=== PATIENT | male | born 1955 | race Hispanic/Latino ===

== ENCOUNTER 2018-01-03 15:54 | Inpatient (IN) | payer OTHER ==
[2018-01-03 19:05] VITALS: BMI 23.1
--- NOTE | 2018-01-03 19:12 | CP.PCM.HP ---
<Mikey Mcallister - Last Filed: 01/03/18 20:49> History of Present Illness - History of Present Illness History of Present Illness: cc: "left foot pain and swelling" HPI: 62 year old male with PMHx of COPD and inguinal hernia presents with a 10 day history of intermittent left foot pain, swelling, and redness that started getting worst 3 days after he missed the last step going down stairs landing forcefully on foot. He states that he did not think much of until Thursday night when his pain got worse, 10 and is now tender to touch, and swollen. He describes the pain as stabbing in nature with no radiation to other parts of the body. The pain is worse when he bears his weight on it while walking and better with elevation of the extremity. Patient lives in a homeless senior living in [place] and was initially seen in [facility] but was transferred to [facility] due to a problem with the ORs and his need for possible amputation. Patient admits to productive cough that started one month ago, with clear phlegm. He admits to sick contacts at the homeless senior living. Patient denies fevers, chills, chest pain, shortness of breath , nausea, vomiting, abdominal pain, diarrhea, and constipation. PMD: none All: none Pmhx: COPD, inguinal hernia shx: none Fmhx: denies Sochx: Tobacco less than a pack a day for 40 years. social drinker. Admits to marihuana use, but no other recreational or illicit drugs Meds: none Present on Admission - Present on Admission Any Indicators Present on Admission: No Review of Systems - Constitutional Constitutional: absent: Anorexia, Chills, Excessive Sweating, Fatigue, Fever, Headache, Weight Gain, Weight Loss, Weakness - EENT Eyes: absent: Change in Vision Ears: absent: Decreased Hearing Nose/Mouth/Throat: absent: Nasal Congestion, Nasal Discharge, Post Nasal Drip, Sore Throat, Neck Pain - Cardiovascular Cardiovascular: absent: Chest Pain, Dyspnea, Leg Edema, Palpitations, Syncope - Respiratory Respiratory: Cough. absent: Dyspnea, Wheezing, Change in Mucous Color - Gastrointestinal Gastrointestinal: absent: Abdominal Pain, Constipation, Diarrhea, Nausea, Vomiting - Genitourinary Genitourinary: absent: Dysuria, Hematuria - Integumentary Integumentary: absent: Rash - Neurological Neurological: absent: Frequent Falls, Headaches, Vertigo, Weakness - Psychiatric Psychiatric: absent: Change in Appetite - Endocrine Endocrine: absent: Excessive Sweating, Fatigue, Palpitations - Hematologic/Lymphatic Hematologic: absent: Easy Bleeding, Easy Bruising Past Patient History - Infectious Disease Hx of Infectious Diseases: None - Tetanus Immunizations Tetanus Immunization: Unknown - Past Medical History & Family History Past Medical History?: No - Past Social History Smoking Status: Current Some Days Smoker - CARDIAC Hx Cardiac Disorders: No - PULMONARY Hx Chronic Obstructive Pulmonary Disease (COPD): Yes (10-03-17) Hx Pneumonia: Yes - NEUROLOGICAL Hx Neurological Disorder: No - HEENT Hx HEENT Problems: Yes (lazy left eye) Hx Cataracts: Yes - RENAL Hx Chronic Kidney Disease: No - ENDOCRINE/METABOLIC Hx Endocrine Disorders: No - HEMATOLOGICAL/ONCOLOGICAL Hx Blood Disorders: No - INTEGUMENTARY Hx Dermatological Problems: No - MUSCULOSKELETAL/RHEUMATOLOGICAL Hx Arthritis: Yes - GASTROINTESTINAL Hx Gastrointestinal Disorders: Yes Other/Comment: Inguinal hernia - GENITOURINARY/GYNECOLOGICAL Hx Genitourinary Disorders: No - PSYCHIATRIC Hx Psychophysiologic Disorder: No Hx Substance Use: Yes (occ marijuana use) - SURGICAL HISTORY Hx Surgeries: Yes (bilateral cataract sx) Other/Comment: PILONIDAL CYST BASE OF THE SPINE REMOVED - ANESTHESIA Hx Anesthesia: No Meds Allergies/Adverse Reactions: Allergies Allergy/AdvReac Type Severity Reaction Status Date / Time No Known Allergies Allergy Verified 10/03/17 22:29 Physical Exam - Head Exam Head Exam: ATRAUMATIC, NORMAL INSPECTION, NORMOCEPHALIC - Eye Exam Eye Exam: Normal appearance, PERRL Pupil Exam: NORMAL ACCOMODATION Additional comments: left eye deviated towards lateral side - ENT Exam ENT Exam: Mucous Membranes Moist, Normal Exam - Neck Exam Neck exam: Positive for: Full Rom, Normal Inspection. Negative for: Lymphadenopathy, Tenderness, Thyromegaly - Respiratory Exam Respiratory Exam: Clear to Auscultation Bilateral, NORMAL BREATHING PATTERN. absent: Rales, Rhonchi, Wheezes - Cardiovascular Exam Cardiovascular Exam: REGULAR RHYTHM, +S1, +S2 - GI/Abdominal Exam GI & Abdominal Exam: Normal Bowel Sounds, Soft. absent: Distended, Rebound, Tenderness - Extremities Exam Additional comments: left foot, dressed with tefla and DSD, surgical shoe in place. warm to palpation on distal 1/3 of anterior leg leg. erythema noted on 1/3 of anterior left leg. left foot edema, nonpitting. tenderness to palpation of left foot and distal 1/3 left leg as per [facility] consult records, the following was noted on physical exam : " DP and PT faintly palpable on the left and 2/4 to the right. TG warm to increased warmth to left leg extending distally to the entire foot , CFT delayed to 5 seconds to the left, and less than 3 seconds to the right, nonpitting edema present to the left foot" - Back Exam Back exam: FULL ROM, NORMAL INSPECTION. absent: tenderness - Neurological Exam Neurological exam: Alert, CN II-XII Intact, Oriented x3 - Psychiatric Exam Psychiatric exam: Normal Affect, Normal Mood - Skin Skin Exam: Dry Additional comments: as per [facility] consult records, the following was noted on physical exam: " Left- necrotic left 2nd digit with positive purulent drainage, positive malodor, positive probe to bone, positive for tunneling dorsally, medially and laterally when probed plantar to 2ns MTPJ, maceration noted to the 2nd MTPJ and 2nd met head, positive for fluctuance, erythema extending form the middle of the leg to the entire foot, with increased erythema at the level of the 2nd MTPJ, swelling and gangrenous changes noted to digits 1, 3, 4 and 5, fluctuant hyperkeratotic lesion noted submet 1, toenails X 5- gangrenous changes noted. Right- excoriated lesions diffusely on the right foot and leg" Results - Vital Signs Recent Vital Signs: Last Vital Signs Temp 98.2 F 01/03/18 17:46 Pulse 95 H 01/03/18 17:46 Resp 20 01/03/18 17:46 BP 112/69 01/03/18 17:46 Pulse Ox 95 01/03/18 17:46 Assessment & Plan - Assessment and Plan (Free Text) Plan: Grangrenous changes, left 2nd toe * Patient was transferred from [facility] due to OR closing - see [facility] consult note 01/03 * Podiatry was consulted in [place] - Dr Nguyen - will be following up patient here * As per Podiatry - Patient to be taken to the OR on Thursday 7:45 AM for Incision and Drainage, amputation of 2nd left digit with possible ampatition of hallux vs transmetatarsal amputation. * CBC done @ [facility] today 01/03 26.3 > 11.5/33.5 <305 * CMP done @ [facility] 01/03 128/5.0/90/30/15/0.7 <107 * U/A @ [facility] 01/03: negative * ESR @ [facility] 01/03: 106 * PT: 15.4, PTT:30.8, INR: 1.4 * EKG done @ [facility] 01/03, sinus tachycardia, otherwise normal ECG * Left Foot X-ray (01/03): deformity, cortical erosions, and demineralization noted of the 2nd middle and distal phalanges, soft tissue emphysema noted medial to the 1st metatarsal head, in the 1st interspace, and plantar to the 2nd metatarsal * Tib-Fib X-ray (01/03): no evidence of soft tissue emphysema, pending official read * Vanco 1gm and Zosyn given at [facility], ER * Ordered Portable chest Xray STAT * ECG STAT * Type and screen ordered * Blood culture x 2 * Urine drug screen ordered * Patient will be NPO after 12am * ID consulted - Dr Jones - help is appreciated - will follow up recs * IVF - NS @ 70mls/hr * Medications : Vanco 1gm IVPB Q24hr, Zosyn 3.375 mg IVPB Q8hrs * F/U am labs (CBC with diff, CMP, Mg, Phosp) * If patient does not go to surgery tomorrow, please order MRI left foot W/O contrast Cough, productive * Chest Xray 01/03: no active infection * Repeat portable Cxray * continue abx above * F/U Blood culture * monitor DVT prophylaxis * DVT: SCD to the right leg, contraindicated to the left leg. * GI: not indicated * Heart healthy diet for dinner 01/03 * NPO after midnight * Pain management: tylenol Q6hrs PRN for pain/fever Plan discussed with Dr Gabriel Mcallister, PGY-1 - Date & Time Date: 01/03/18 Time: 18:59 <Gabriel Hussein - Last Filed: 01/07/18 14:54> Results - Vital Signs Recent Vital Signs: Last Vital Signs Temp 98.5 F 01/07/18 07:32 Pulse 77 01/07/18 07:32 Resp 20 01/07/18 07:32 BP 120/77 01/07/18 07:32 Pulse Ox 96 01/07/18 07:32 - Labs Result Diagrams: 01/07/18 06:52 01/07/18 06:52 Labs: Laboratory Results - last 24 hr 01/06/18 01/06/18 01/07/18 16:15 21:06 06:52 WBC 15.1 H RBC 3.48 L Hgb 10.5 L Hct 30.6 L MCV 87.8 MCH 30.0 MCHC 34.2 RDW 14.3 Plt Count 376 MPV 6.2 L Neut % (Auto) 80.2 H Lymph % (Auto) 7.7 L [place] % (Auto) 10.1 H Eos % (Auto) 1.6 Baso % (Auto) 0.4 Neut # (Auto) 12.1 H Lymph # (Auto) 1.2 [place] # (Auto) 1.5 H Eos # (Auto) 0.2 Baso # (Auto) 0.1 Neutrophils % (Manual) 81 H Band Neutrophils % 1 Lymphocytes % (Manual) 8 L Reactive Lymphs % 1 H Monocytes % (Manual) 5 Eosinophils % (Manual) 2 Myelocytes % 2 H Platelet Estimate Normal Hypochromasia (manual) Slight Sodium Potassium Chloride Carbon Dioxide Anion Gap BUN Creatinine Est GFR ( Amer) Est GFR (Non-Af Amer) POC Glucose (mg/dL) 156 H 148 H Random Glucose Calcium Phosphorus Magnesium Total Bilirubin AST ALT Alkaline Phosphatase Total Protein Albumin Globulin Albumin/Globulin Ratio Vancomycin Trough 01/07/18 01/07/18 01/07/18 06:52 07:15 11:06 WBC RBC Hgb Hct MCV MCH MCHC RDW Plt Count MPV Neut % (Auto) Lymph % (Auto) [place] % (Auto) Eos % (Auto) Baso % (Auto) Neut # (Auto) Lymph # (Auto) [place] # (Auto) Eos # (Auto) Baso # (Auto) Neutrophils % (Manual) Band Neutrophils % Lymphocytes % (Manual) Reactive Lymphs % Monocytes % (Manual) Eosinophils % (Manual) Myelocytes % Platelet Estimate Hypochromasia (manual) Sodium 135 Potassium 3.7 Chloride 93 L Carbon Dioxide 36 H Anion Gap 9 L BUN 10 Creatinine 0.6 L Est GFR ( Amer) > 60 Est GFR (Non-Af Amer) > 60 POC Glucose (mg/dL) 124 H 201 H Random Glucose 114 H Calcium 8.0 L Phosphorus 3.1 Magnesium 2.0 Total Bilirubin 0.1 L AST 18 ALT 24 Alkaline Phosphatase 68 Total Protein 5.8 L Albumin 2.6 L Globulin 3.2 Albumin/Globulin Ratio 0.8 L Vancomycin Trough 01/07/18 12:59 WBC RBC Hgb Hct MCV MCH MCHC RDW Plt Count MPV Neut % (Auto) Lymph % (Auto) [place] % (Auto) Eos % (Auto) Baso % (Auto) Neut # (Auto) Lymph # (Auto) [place] # (Auto) Eos # (Auto) Baso # (Auto) Neutrophils % (Manual) Band Neutrophils % Lymphocytes % (Manual) Reactive Lymphs % Monocytes % (Manual) Eosinophils % (Manual) Myelocytes % Platelet Estimate Hypochromasia (manual) Sodium Potassium Chloride Carbon Dioxide Anion Gap BUN Creatinine Est GFR ( Amer) Est GFR (Non-Af Amer) POC Glucose (mg/dL) Random Glucose Calcium Phosphorus Magnesium Total Bilirubin AST ALT Alkaline Phosphatase Total Protein Albumin Globulin Albumin/Globulin Ratio Vancomycin Trough 13.6 H Attending/Attestation - Attestation I have personally seen and examined this patient.: Yes I have fully participated in the care of the patient.: Yes I have reviewed all pertinent clinical information: Yes Notes (Text): 01/07/18 14:52 Medical attending: Patient was seen and examined by me. Agree with the above note by the resident The patient was not in any acute distress when I came and saw him. He was a transfer from [facility] since the OR would not be available on Thursday and podiatry felt strongly that he needed surgical intervention for the lower extremity. He will need to be on IV abx while here and may need additional imaging such as bone scan/MRI thank you Gabriel Hussein
[2018-01-03] MEDS ORDERED: Vancomycin 1 gm/NS 200 ml 1 GM/200 ML BAG IVPB SCH (20:15)
[2018-01-03] MEDS ORDERED: Sodium Chloride 0.9% 1,000 ML IV SCH (20:30)
[2018-01-03] MEDS: Piperacillin/Tazobact 3.375 GM in Sodium Chloride 100 ML IVPB SCH (21:10)
[2018-01-03 21:48] LABS: BARBITURATES, UR NEGATIVE (NEGATIVE); BENZODIAZEPINES, UR NEGATIVE (NEGATIVE); OPIATES, UR NEGATIVE (NEGATIVE); PHENCYCLIDINE, UR NEGATIVE (NEGATIVE)
[2018-01-04] MEDS: Piperacillin/Tazobact 3.375 GM in Sodium Chloride 100 ML IVPB SCH ×3 (04:20→21:00)
[2018-01-04 07:50] LABS: ALB/GLOB RATIO 0.9 (1.0-2.1); ALBUMIN 2.9 g/dL (3.5-5.0); ALT/SGPT 19 U/L (21-72); AST/SGOT 12 U/L (17-59); BLOOD UREA NITROGEN 10 mg/dL (9-20); CALCIUM 8.1 mg/dl (8.6-10.4); GFR AFRICAN-AMERICAN > 60; GFR NON-AFRICAN AMERICAN > 60
[2018-01-04 07:52] LABS: BASO % 0.1 % (0.0-2.0); EOS % 0.1 % (0.0-4.0); HEMOGLOBIN 10.6 g/dL (12.0-18.0); LYMPH # 0.5 K/uL (1.0-4.3); LYMPH % 2.5 % (20.0-40.0); MEAN CELL VOLUME 87.4 fL (80.0-94.0); MEAN CORPUSCULAR HEMOGLOBIN 29.7 pg (27.0-31.0); MEAN PLATELET VOLUME 6.4 fL (7.2-11.7); NEUT # 19.2 K/uL (1.8-7.0); NEUT % 88.3 % (50.0-75.0); PLATELET COUNT 305 K/uL (130-400); RBC 3.55 Mil/uL (4.40-5.90); RED CELL DISTRIBUTION WIDTH 13.9 % (11.5-14.5); WHITE BLOOD COUNT 21.7 K/uL (4.8-10.8)
--- NOTE | 2018-01-04 07:59 | CP.PCM.PN ---
<Maria T Gallegos - Last Filed: 01/04/18 20:16> Subjective - Date & Time of Evaluation Date of Evaluation: 01/04/18 Time of Evaluation: 09:00 - Subjective Subjective: PGY-1 Maria T Gallegos D.O. Medicine Progress note for Dr. Jimenez service : Patient was seen and examined this morning. He is resting comfortably in bed. He describes minimal pain. He states he is prepared for his podiatry procedure later today. He is scheduled for I&D +/- amputation on left foot later today. Patient denies fever and chills. He has good sleep and appetite. Denies diarrhea or constipation. He endorses chronic dry skin on his lower extremities. Discussed applying lotion to affected area. Objective - Vital Signs/Intake and Output Vital Signs (last 24 hours): Temp Pulse Resp BP Pulse Ox 98 F 93 H 16 108/66 99 01/04/18 00:39 01/04/18 00:39 01/04/18 00:39 01/04/18 00:39 01/04/18 00:39 Intake and Output: 01/04/18 01/04/18 06:59 18:59 Intake Total 530 Output Total 350 Balance 180 - Medications Medications: Current Medications Acetaminophen (Tylenol 325mg Tab) 650 mg PO Q6 PRN PRN Reason: Pain, moderate (4-7) Piperacillin Sod/Tazobactam (Sod 3.375 gm/ Sodium Chloride) 100 mls @ 200 mls/ hr IVPB Q8H COUNTS INCLUDE 234 BEDS AT THE [facility] PRN Reason: Protocol Last Admin: 01/04/18 04:20 Dose: 200 mls/hr Sodium Chloride (Sodium Chloride 0.9%) 1,000 mls @ 70 mls/hr IV .[id number] COUNTS INCLUDE 234 BEDS AT THE [facility] Last Admin: 01/03/18 20:44 Dose: 70 mls/hr Vancomycin/Sodium Chloride (Vancomycin 1 Gm/Ns 200 Ml) 1 gm in 200 mls @ 166.7 mls/hr IVPB Q24H COUNTS INCLUDE 234 BEDS AT THE [facility] PRN Reason: Protocol Stop: 01/08/18 20:16 Last Admin: 01/03/18 21:00 Dose: 166.7 mls/hr - Labs Labs: 01/04/18 07:20 01/04/18 07:20 - Constitutional Appears: Well, Other (thin) - Head Exam Head Exam: ATRAUMATIC, NORMAL INSPECTION, NORMOCEPHALIC - Eye Exam Eye Exam: EOMI, Normal appearance - ENT Exam ENT Exam: Mucous Membranes Moist - Neck Exam Neck Exam: Full ROM, Normal Inspection - Respiratory Exam Respiratory Exam: Clear to Ausculation Bilateral - Cardiovascular Exam Cardiovascular Exam: REGULAR RHYTHM - GI/Abdominal Exam GI & Abdominal Exam: Soft, Normal Bowel Sounds - Rectal Exam Rectal Exam: Deferred - Extremities Exam Extremities Exam: Full ROM Additional comments: right foot wrapped and in SCD, ankle is erythematous, no edema, mild tenderness , dry skin left ankle and foot with dry skin, no edema - Back Exam Back Exam: NORMAL INSPECTION - Neurological Exam Neurological Exam: Alert, Awake, Oriented x3 - Psychiatric Exam Psychiatric exam: Normal Affect, Normal Mood - Skin Skin Exam: Abrasion (LLE wrapped- not examined), Dry (lower extremities), Intact , Warm (LLE) Assessment and Plan - Assessment and Plan (Free Text) Assessment: Patient is a 62 yo homeless male with PMH of COPD presents with L foot cellulitis that now has gangrenous changes. He reports this occurred after a misstep while going down the stairs. He is scheduled for a surgery today. Plan: Left foot cellulitis with gangrenous changes, 2nd toe - Vancomycin 1 g IV q24hrs- check trough before 4th dose - Zosyn 3.375 mg IV q8hrs - Tylenol 650 mg q6hrs for pain - Podiatry consult- surgery scheduled for 01/04 - NPO midnight 01/04 - EKG- NSR - Pt is low risk for podiatry procedure - Ammonium lactate ointment to dry skin as needed COPD, stable - No outpt meds - CXR- no acute disease IVF: NS @ 70 mL/hr VTE ppx: SCDs GI ppx: not indicated Code status: full code <[email or web address] - Last Filed: 01/05/18 08:15> Objective - Vital Signs/Intake and Output Vital Signs (last 24 hours): Temp Pulse Resp BP Pulse Ox 98.3 F 82 20 103/65 96 01/05/18 07:42 01/05/18 07:42 01/05/18 07:42 01/05/18 07:42 01/05/18 07:42 Intake and Output: 01/05/18 01/05/18 06:59 18:59 Intake Total 1820 Output Total 500 Balance 1320 - Medications Medications: Current Medications Acetaminophen (Tylenol 325mg Tab) 650 mg PO Q6 PRN PRN Reason: Pain, moderate (4-7) Piperacillin Sod/Tazobactam (Sod 3.375 gm/ Sodium Chloride) 100 mls @ 200 mls/ hr IVPB Q8H [facility] PRN Reason: Protocol Last Admin: 01/05/18 04:28 Dose: 200 mls/hr Vancomycin/Sodium Chloride (Vancomycin 1 Gm/Ns 200 Ml) 1 gm in 200 mls @ 133.333 mls/hr IVPB Q12H [facility] PRN Reason: Protocol Last Admin: 01/05/18 02:03 Dose: 133.333 mls/hr Lactic Acid (Lac-Hydrin 12% Lotion (225 G)) 0 gm EXT Q6 PRN PRN Reason: dry skin Potassium Chloride (Potassium Chloride Oral Soln) 20 meq PO BID [facility] Stop: 01/06/18 02:00 Saccharomyces Boulardii (Florastor) 250 mg PO BID JOVITA - Labs Labs: 01/05/18 07:08 01/05/18 07:08 Attending/Attestation - Attestation I have personally seen and examined this patient.: Yes I have fully participated in the care of the patient.: Yes I have reviewed all pertinent clinical information, including history, physical exam and plan: Yes Notes (Text): Patient was seen and examined before surgery. Patient has foul smelling left foot infection. Has infected left foot,2nd toe gangrene,abscess and cellulites of left foot. No history of diabetes. He is a smoker. 1. Left foot infection/toe gangrene/abscess and cellulites of foot 2.COPD-stable 3.h/o smoking 4.Homeless continue zosyn and vancomycin.Vanco level,follow cultures ID consult appreciated we will follow with surgery team assessment and the plan discussed with the resident and I agree with the documentation
--- NOTE | 2018-01-04 08:30 | RAD ---
Date of service: 01/03/2018 HISTORY: cough COMPARISON: No prior. FINDINGS: LUNGS: The lungs are hyperinflated and there is peribronchial thickening with chronic changes in both lungs. No focal consolidation. There is left basilar scarring. PLEURA: No significant pleural effusion identified, no pneumothorax apparent. CARDIOVASCULAR: Normal. OSSEOUS STRUCTURES: No significant abnormalities. VISUALIZED UPPER ABDOMEN: Normal. OTHER FINDINGS: None. IMPRESSION: No active pulmonary disease. COPD.
[2018-01-04 09:24] LABS: ANISOCYTOSIS SLIGHT; BANDS 5 % (0-2); LYMPHOCYTE 2 % (20-40); MONOCYTE 8 % (0-10); NEUTROPHIL 85 % (50-75); PLATELET ESTIMATE NORMAL (NORMAL); POIKILOCYTOSIS SLIGHT; TOTAL CELLS COUNTED 100
[2018-01-04 09:25] LABS: HYPOCHROMIC SLIGHT
[2018-01-04] MEDS: Dextrose 5%/0.45% NS 1,000 ML IV SCH ×2 (09:25→23:33)
[2018-01-04] MEDS ORDERED: Dextrose 5%/0.9% NS 1,000 ML IV SCH (09:30)
--- NOTE | 2018-01-04 11:06 | CP.PCM.CON ---
History of Present Illness - History of Present Illness History of Present Illness: Podiatry Consult Note - Dr. Wood 62 y/o male with PMHx of COPD seen at bedside this morning regarding left foot gas gangrene with 2nd digit gangrene. Pt resting comfortably in bed, stating he has mild pain in the left foot. States he slept ok and feels somewhat better today. Pt was transferred from [facility] yesterday to allow for surgical intervention today of left foot infection. He states he has had pain and swelling in the left foot for approx 10 days now, worsened over the last 3-4 days. Denies a history of diabetes or any complications with his feet. States he stepped on the foot strangely 4-5 days ago and since then felt worsening pain. Denies F/C/N/V/CP/SOB PSHx: hernia repair All: NKDA SocHx: 40 year smoking history; denies EtOH or drug use. Lives at [facility] homeless senior care Review of Systems - Review of Systems All systems: reviewed and no additional remarkable complaints except (per HPI) Past Patient History - Infectious Disease Hx of Infectious Diseases: None - Tetanus Immunizations Tetanus Immunization: Unknown - Past Medical History & Family History Past Medical History?: No - Past Social History Smoking Status: Current Some Days Smoker - CARDIAC Hx Cardiac Disorders: No - PULMONARY Hx Chronic Obstructive Pulmonary Disease (COPD): Yes (10-03-17) Hx Pneumonia: Yes - NEUROLOGICAL Hx Neurological Disorder: No - HEENT Hx HEENT Problems: Yes (lazy left eye) Hx Cataracts: Yes - RENAL Hx Chronic Kidney Disease: No - ENDOCRINE/METABOLIC Hx Endocrine Disorders: No - HEMATOLOGICAL/ONCOLOGICAL Hx Blood Disorders: No - INTEGUMENTARY Hx Dermatological Problems: No - MUSCULOSKELETAL/RHEUMATOLOGICAL Hx Arthritis: Yes - GASTROINTESTINAL Hx Gastrointestinal Disorders: Yes Other/Comment: Inguinal hernia - GENITOURINARY/GYNECOLOGICAL Hx Genitourinary Disorders: No - PSYCHIATRIC Hx Psychophysiologic Disorder: No Hx Substance Use: Yes (occ marijuana use) - SURGICAL HISTORY Hx Surgeries: Yes (bilateral cataract sx) Other/Comment: PILONIDAL CYST BASE OF THE SPINE REMOVED - ANESTHESIA Hx Anesthesia: No Meds Allergies/Adverse Reactions: Allergies Allergy/AdvReac Type Severity Reaction Status Date / Time No Known Allergies Allergy Verified 10/03/17 22:29 - Medications Medications: Current Medications Acetaminophen (Tylenol 325mg Tab) 650 mg PO Q6 PRN PRN Reason: Pain, moderate (4-7) Piperacillin Sod/Tazobactam (Sod 3.375 gm/ Sodium Chloride) 100 mls @ 200 mls/ hr IVPB Q8H [facility] PRN Reason: Protocol Last Admin: 01/04/18 04:20 Dose: 200 mls/hr Vancomycin/Sodium Chloride (Vancomycin 1 Gm/Ns 200 Ml) 1 gm in 200 mls @ 166.7 mls/hr IVPB Q24H [facility] PRN Reason: Protocol Stop: 01/08/18 20:16 Last Admin: 01/03/18 21:00 Dose: 166.7 mls/hr Dextrose/Sodium Chloride (Dextrose 5%/0.45% Ns 1000 Ml) 1,000 mls @ 70 mls/hr IV .[id number] [facility] Last Admin: 01/04/18 09:25 Dose: 70 mls/hr Physical Exam - Constitutional Appears: Well, Non-toxic, No Acute Distress - Extremities Exam Additional comments: LLE exhibits dressing which is clean dry and intact at this time, no strikethrough Mild malodor noted to LLE Pt able to wiggle toes Surgical shoe noted to L foot - Neurological Exam Neurological exam: Alert, Oriented x3 - Psychiatric Exam Psychiatric exam: Normal Affect, Normal Mood Results - Vital Signs Recent Vital Signs: Last Vital Signs Temp 98.8 F 01/04/18 08:00 Pulse 83 01/04/18 08:00 Resp 20 01/04/18 08:00 BP 104/64 01/04/18 08:00 Pulse Ox 95 01/04/18 08:00 - Labs Result Diagrams: 01/04/18 07:20 01/04/18 07:20 Labs: Laboratory Results - last 24 hr 01/03/18 01/03/18 01/04/18 21:14 21:14 07:20 WBC 21.7 H RBC 3.55 L Hgb 10.6 L Hct 31.0 L MCV 87.4 MCH 29.7 MCHC 34.0 RDW 13.9 Plt Count 305 MPV 6.4 L Neut % (Auto) 88.3 H Lymph % (Auto) 2.5 L [place] % (Auto) 9.0 Eos % (Auto) 0.1 Baso % (Auto) 0.1 Neut # (Auto) 19.2 H Lymph # (Auto) 0.5 L [place] # (Auto) 2.0 H Eos # (Auto) 0.0 Baso # (Auto) 0.0 Neutrophils % (Manual) 85 H Band Neutrophils % 5 H Lymphocytes % (Manual) 2 L Monocytes % (Manual) 8 Platelet Estimate Normal Hypochromasia (manual) Slight Poikilocytosis (manual Slight Anisocytosis (manual) Slight Sodium Potassium Chloride Carbon Dioxide Anion Gap BUN Creatinine Est GFR ( Amer) Est GFR (Non-Af Amer) Random Glucose Calcium Phosphorus Magnesium Total Bilirubin AST ALT Alkaline Phosphatase Total Protein Albumin Globulin Albumin/Globulin Ratio Urine Opiates Screen Negative Urine Methadone Screen Negative Ur Barbiturates Screen Negative Ur Phencyclidine Scrn Negative Ur Amphetamines Screen Negative U Benzodiazepines Scrn Negative U Oth Cocaine Metabols Negative U Cannabinoids Screen Negative Blood Type A NEGATIVE Antibody Screen Negative 01/04/18 07:20 WBC RBC Hgb Hct MCV MCH MCHC RDW Plt Count MPV Neut % (Auto) Lymph % (Auto) [place] % (Auto) Eos % (Auto) Baso % (Auto) Neut # (Auto) Lymph # (Auto) [place] # (Auto) Eos # (Auto) Baso # (Auto) Neutrophils % (Manual) Band Neutrophils % Lymphocytes % (Manual) Monocytes % (Manual) Platelet Estimate Hypochromasia (manual) Poikilocytosis (manual Anisocytosis (manual) Sodium 133 Potassium 3.7 Chloride 93 L Carbon Dioxide 31 H Anion Gap 12 BUN 10 Creatinine 0.6 L Est GFR ( Amer) > 60 Est GFR (Non-Af Amer) > 60 Random Glucose 82 Calcium 8.1 L Phosphorus 3.4 Magnesium 2.0 Total Bilirubin 0.7 AST 12 L D ALT 19 L Alkaline Phosphatase 77 Total Protein 6.0 L Albumin 2.9 L Globulin 3.2 Albumin/Globulin Ratio 0.9 L Urine Opiates Screen Urine Methadone Screen Ur Barbiturates Screen Ur Phencyclidine Scrn Ur Amphetamines Screen U Benzodiazepines Scrn U Oth Cocaine Metabols U Cannabinoids Screen Blood Type Antibody Screen Assessment & Plan - Assessment and Plan (Free Text) Assessment: 62 y/o male with 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 Wood Marked leukocytosis still present, decreasing from 26.3 yesterday to 21.7 today Explained to patient the urgency of surgical intervention to clean out infected tissue and bone Discussed all risks, benefits, complications and alternatives with patient Written consent signed by patient, demonstrated clear verbal understanding Pt to go to surgery today at 6:30pm for incision and drainage of L foot with amputation of all non-viable soft tissue and bone (2nd digit and metatarsal amputation vs. transmetatarsal amputation) Medical optimization appreciated at this time NPO order in place Anti-coags to be held at this time Continue IV Zosyn, Vancomycin Will continue to follow patient closely
--- NOTE | 2018-01-04 13:05 | CP.PCM.CON ---
History of Present Illness - History of Present Illness History of Present Illness: 62 year old male presents with a 10 day history of intermittent left foot pain, swelling, and redness that started getting worst 3 days after he missed the last step going down stairs landing forcefully on foot. Patient lives in a homeless skilled nursing in [place] and was initially seen in [facility] but was transferred to [facility] due to a problem with the ORs and his need for possible amputation ID consulted for antibiotic management PMD: none All: none Pmhx: COPD, inguinal hernia shx: none Fmhx: denies Sochx: Tobacco less than a pack a day for 40 years. social drinker. Admits to marihuana use, but no other recreational or illicit drugs Meds: none Review of Systems - Constitutional Constitutional: absent: Anorexia, Chills, Excessive Sweating, Fatigue, Fever, Headache, Weight Gain, Weight Loss, Weakness - EENT Eyes: absent: Change in Vision Ears: absent: Decreased Hearing Nose/Mouth/Throat: absent: Nasal Congestion, Nasal Discharge, Post Nasal Drip, Sore Throat, Neck Pain - Cardiovascular Cardiovascular: absent: Chest Pain, Dyspnea, Leg Edema, Palpitations, Syncope - Respiratory Respiratory: Cough. absent: Dyspnea, Wheezing, Change in Mucous Color - Gastrointestinal Gastrointestinal: absent: Abdominal Pain, Constipation, Diarrhea, Nausea, Vomiting - Genitourinary Genitourinary: absent: Dysuria, Hematuria - Integumentary Integumentary: absent: Rash - Neurological Neurological: absent: Frequent Falls, Headaches, Vertigo, Weakness - Psychiatric Psychiatric: absent: Change in Appetite - Endocrine Endocrine: absent: Excessive Sweating, Fatigue, Palpitations - Hematologic/Lymphatic Hematologic: absent: Easy Bleeding, Easy Bruising Past Patient History - Infectious Disease Hx of Infectious Diseases: None - Tetanus Immunizations Tetanus Immunization: Unknown - Past Medical History & Family History Past Medical History?: No - Past Social History Smoking Status: Current Some Days Smoker - CARDIAC Hx Cardiac Disorders: No - PULMONARY Hx Chronic Obstructive Pulmonary Disease (COPD): Yes (10-03-17) Hx Pneumonia: Yes - NEUROLOGICAL Hx Neurological Disorder: No - HEENT Hx HEENT Problems: Yes (lazy left eye) Hx Cataracts: Yes - RENAL Hx Chronic Kidney Disease: No - ENDOCRINE/METABOLIC Hx Endocrine Disorders: No - HEMATOLOGICAL/ONCOLOGICAL Hx Blood Disorders: No - INTEGUMENTARY Hx Dermatological Problems: No - MUSCULOSKELETAL/RHEUMATOLOGICAL Hx Arthritis: Yes - GASTROINTESTINAL Hx Gastrointestinal Disorders: Yes Other/Comment: Inguinal hernia - GENITOURINARY/GYNECOLOGICAL Hx Genitourinary Disorders: No - PSYCHIATRIC Hx Psychophysiologic Disorder: No Hx Substance Use: Yes (occ marijuana use) - SURGICAL HISTORY Hx Surgeries: Yes (bilateral cataract sx) Other/Comment: PILONIDAL CYST BASE OF THE SPINE REMOVED - ANESTHESIA Hx Anesthesia: No Meds Allergies/Adverse Reactions: Allergies Allergy/AdvReac Type Severity Reaction Status Date / Time No Known Allergies Allergy Verified 10/03/17 22:29 - Medications Medications: Current Medications Acetaminophen (Tylenol 325mg Tab) 650 mg PO Q6 PRN PRN Reason: Pain, moderate (4-7) Piperacillin Sod/Tazobactam (Sod 3.375 gm/ Sodium Chloride) 100 mls @ 200 mls/ hr IVPB Q8H [facility] PRN Reason: Protocol Last Admin: 01/04/18 12:09 Dose: 200 mls/hr Vancomycin/Sodium Chloride (Vancomycin 1 Gm/Ns 200 Ml) 1 gm in 200 mls @ 166.7 mls/hr IVPB Q24H [facility] PRN Reason: Protocol Stop: 01/08/18 20:16 Last Admin: 01/03/18 21:00 Dose: 166.7 mls/hr Dextrose/Sodium Chloride (Dextrose 5%/0.45% Ns 1000 Ml) 1,000 mls @ 70 mls/hr IV .[id number] [facility] Last Admin: 01/04/18 09:25 Dose: 70 mls/hr Physical Exam - Constitutional Appears: No Acute Distress, Chronically Ill - Head Exam Head Exam: ATRAUMATIC, NORMOCEPHALIC - Eye Exam Eye Exam: PERRL. absent: Scleral icterus - ENT Exam ENT Exam: Mucous Membranes Dry, Normal External Ear Exam - Neck Exam Neck exam: Negative for: Lymphadenopathy - Respiratory Exam Respiratory Exam: Decreased Breath Sounds, Rhonchi - Cardiovascular Exam Cardiovascular Exam: REGULAR RHYTHM, +S1, +S2 - GI/Abdominal Exam GI & Abdominal Exam: Diminished Bowel Sounds, Soft. absent: Tenderness - Rectal Exam Rectal Exam: Deferred - Exam Exam: NORMAL INSPECTION - Extremities Exam Extremities exam: Positive for: pedal edema, tenderness, pedal pulses present. Negative for: calf tenderness - Back Exam Back exam: absent: CVA tenderness (L), CVA tenderness (R) - Neurological Exam Neurological exam: Alert, CN II-XII Intact, Oriented x3, Reflexes Normal - Psychiatric Exam Psychiatric exam: Normal Mood - Skin Skin Exam: Dry Results - Vital Signs Recent Vital Signs: Last Vital Signs Temp 98.8 F 01/04/18 08:00 Pulse 83 01/04/18 08:00 Resp 20 01/04/18 08:00 BP 104/64 01/04/18 08:00 Pulse Ox 95 01/04/18 08:00 - Labs Result Diagrams: 01/04/18 07:20 01/04/18 07:20 Labs: Laboratory Results - last 24 hr 01/03/18 01/03/18 01/04/18 21:14 21:14 07:20 WBC 21.7 H RBC 3.55 L Hgb 10.6 L Hct 31.0 L MCV 87.4 MCH 29.7 MCHC 34.0 RDW 13.9 Plt Count 305 MPV 6.4 L Neut % (Auto) 88.3 H Lymph % (Auto) 2.5 L [place] % (Auto) 9.0 Eos % (Auto) 0.1 Baso % (Auto) 0.1 Neut # (Auto) 19.2 H Lymph # (Auto) 0.5 L [place] # (Auto) 2.0 H Eos # (Auto) 0.0 Baso # (Auto) 0.0 Neutrophils % (Manual) 85 H Band Neutrophils % 5 H Lymphocytes % (Manual) 2 L Monocytes % (Manual) 8 Platelet Estimate Normal Hypochromasia (manual) Slight Poikilocytosis (manual Slight Anisocytosis (manual) Slight Sodium Potassium Chloride Carbon Dioxide Anion Gap BUN Creatinine Est GFR ( Amer) Est GFR (Non-Af Amer) POC Glucose (mg/dL) Random Glucose Calcium Phosphorus Magnesium Total Bilirubin AST ALT Alkaline Phosphatase Total Protein Albumin Globulin Albumin/Globulin Ratio Urine Opiates Screen Negative Urine Methadone Screen Negative Ur Barbiturates Screen Negative Ur Phencyclidine Scrn Negative Ur Amphetamines Screen Negative U Benzodiazepines Scrn Negative U Oth Cocaine Metabols Negative U Cannabinoids Screen Negative Blood Type A NEGATIVE Antibody Screen Negative 01/04/18 01/04/18 01/04/18 07:20 07:21 11:04 WBC RBC Hgb Hct MCV MCH MCHC RDW Plt Count MPV Neut % (Auto) Lymph % (Auto) [place] % (Auto) Eos % (Auto) Baso % (Auto) Neut # (Auto) Lymph # (Auto) [place] # (Auto) Eos # (Auto) Baso # (Auto) Neutrophils % (Manual) Band Neutrophils % Lymphocytes % (Manual) Monocytes % (Manual) Platelet Estimate Hypochromasia (manual) Poikilocytosis (manual Anisocytosis (manual) Sodium 133 Potassium 3.7 Chloride 93 L Carbon Dioxide 31 H Anion Gap 12 BUN 10 Creatinine 0.6 L Est GFR ( Amer) > 60 Est GFR (Non-Af Amer) > 60 POC Glucose (mg/dL) 79 82 Random Glucose 82 Calcium 8.1 L Phosphorus 3.4 Magnesium 2.0 Total Bilirubin 0.7 AST 12 L D ALT 19 L Alkaline Phosphatase 77 Total Protein 6.0 L Albumin 2.9 L Globulin 3.2 Albumin/Globulin Ratio 0.9 L Urine Opiates Screen Urine Methadone Screen Ur Barbiturates Screen Ur Phencyclidine Scrn Ur Amphetamines Screen U Benzodiazepines Scrn U Oth Cocaine Metabols U Cannabinoids Screen Blood Type Antibody Screen Assessment & Plan (1) Cellulitis, leg Status: Acute (2) Gangrene of extremity Status: Acute - Assessment and Plan (Free Text) Assessment: Pt to go to surgery today at 6:30pm for incision and drainage of L foot with amputation of all non-viable soft tissue and bone (2nd digit and metatarsal amputation vs. transmetatarsal amputation) await cultures cont iv antibiotic empirically
[2018-01-04] MEDS: Vancomycin 1 gm/NS 200 ml 1 GM/200 ML BAG IVPB SCH (13:48)
[2018-01-04] MEDS ORDERED: Ammonium Lactate 12% Lotion (225 g) EXT PRN (14:22)
[2018-01-04] MEDS ORDERED: Lidocaine 2% MPF (5 ml) Inj ONE (18:21)
[2018-01-04] MEDS ORDERED: Bupivacaine 0.25% 20 ML INJ IJ ONE (18:21)
[2018-01-04] MEDS ORDERED: Midazolam 2 MG/2 ML VIAL ONE (18:35)
[2018-01-04] MEDS ORDERED: Propofol 10 mg/ml Inj (20 ML) ONE (18:35)
[2018-01-04] MEDS ORDERED: ePHEDrine 50 mg/ml Inj ONE (18:51)
[2018-01-04] MEDS ORDERED: HYDROmorphone 0.5 mg/0.5 ml ISec IVP PRN (19:53)
[2018-01-04] MEDS ORDERED: Dexamethasone 4 mg/1 ml IVP PRN (19:53)
--- NOTE | 2018-01-04 19:53 | PCM.SURG1 ---
Surgeon's Initial Post Op Note - Surgeon's Notes Surgeon: Dr. Nguyen Thread Clipper: Dr. Onofre Tubbs, Dr. Luana James Type of Anesthesia: General Endo Anesthesia Administered By: Dr. Pruitt Pre-Operative Diagnosis: Left foot gas gangrene Operative Findings: see operative report. I: 20cc 1:1 mix 2% Lidocaine plain and 0.25% Marcaine plain. M: 3-0 Prolene, 1" iodoform packing Post-Operative Diagnosis: same Operation Performed: left foot transmetatarsal amputation Specimen/Specimens Removed: left foot metatarsal heads and digits 1-5 Estimated Blood Loss: EBL {In ML}: 20 Blood Products Given: N/A Drains Used: No Drains Post-Op Condition: Good Date of Surgery/Procedure: 01/04/18 Time of Surgery/Procedure: 19:54
[2018-01-05] MEDS: Vancomycin 1 gm/NS 200 ml 1 GM/200 ML BAG IVPB SCH ×2 (02:03→13:44)
[2018-01-05] MEDS: Piperacillin/Tazobact 3.375 GM in Sodium Chloride 100 ML IVPB SCH ×3 (04:28→20:30)
--- NOTE | 2018-01-05 05:58 | CP.PCM.PN ---
<Maria T Gallegos - Last Filed: 01/05/18 19:56> Subjective - Date & Time of Evaluation Date of Evaluation: 01/05/18 Time of Evaluation: 09:30 - Subjective Subjective: PGY-1 Maria T Gallegos D.O. Medicine Progress note for Dr. Jimenez service: Patient was seen and examined this morning. He is resting comfortably in bed. He is POD 1 left foot transmetatarsal amputation secondary to gas gangrene. He complains of only mild tenderness. He is currently non-weight bearing and he is likely to go back to the OR later this week for further debridement. Patient denies fever and chills. He has good sleep and appetite. Denies diarrhea or constipation. Discussed drinking Ensure for supplementation due to low albumin. Objective - Vital Signs/Intake and Output Vital Signs (last 24 hours): Temp Pulse Resp BP Pulse Ox 99.1 F 105 H 20 102/61 97 01/05/18 00:00 01/05/18 00:00 01/05/18 00:00 01/05/18 00:00 01/05/18 00:00 Intake and Output: 01/04/18 01/05/18 18:59 06:59 Intake Total 1925 1010 Output Total 1050 Balance 875 1010 - Medications Medications: Current Medications Acetaminophen (Tylenol 325mg Tab) 650 mg PO Q6 PRN PRN Reason: Pain, moderate (4-7) Piperacillin Sod/Tazobactam (Sod 3.375 gm/ Sodium Chloride) 100 mls @ 200 mls/ hr IVPB Q8H [facility] PRN Reason: Protocol Last Admin: 01/05/18 04:28 Dose: 200 mls/hr Dextrose/Sodium Chloride (Dextrose 5%/0.45% Ns 1000 Ml) 1,000 mls @ 70 mls/hr IV .[id number] [facility] Last Admin: 01/04/18 23:33 Dose: Not Given Vancomycin/Sodium Chloride (Vancomycin 1 Gm/Ns 200 Ml) 1 gm in 200 mls @ 133.333 mls/hr IVPB Q12H [facility] PRN Reason: Protocol Last Admin: 01/05/18 02:03 Dose: 133.333 mls/hr Lactic Acid (Lac-Hydrin 12% Lotion (225 G)) 0 gm EXT Q6 PRN PRN Reason: dry skin Saccharomyces Boulardii (Florastor) 250 mg PO BID [facility] - Labs Labs: 01/04/18 07:20 01/04/18 07:20 Total Bilirubin 0.4 mg/dL (0.2-1.3) 01/05/18 07:08 AST 14 U/L (17-59) L 01/05/18 07:08 ALT 19 U/L (21-72) L 01/05/18 07:08 Alkaline Phosphatase 87 U/L (38-126) 01/05/18 07:08 01/05/18 07:08 01/05/18 07:08 - Constitutional Appears: Well, No Acute Distress, Older Than Stated Age, Other (thin, cooperative) - Head Exam Head Exam: ATRAUMATIC, NORMAL INSPECTION, NORMOCEPHALIC - Eye Exam Eye Exam: EOMI, Normal appearance - ENT Exam ENT Exam: Mucous Membranes Moist - Neck Exam Neck Exam: Full ROM, Normal Inspection - Respiratory Exam Respiratory Exam: Clear to Ausculation Bilateral, NORMAL BREATHING PATTERN - Cardiovascular Exam Cardiovascular Exam: REGULAR RHYTHM, +S1, +S2 - GI/Abdominal Exam GI & Abdominal Exam: Soft, Normal Bowel Sounds - Rectal Exam Rectal Exam: Deferred - Extremities Exam Additional comments: left foot heavily wrapped post-op - Back Exam Back Exam: NORMAL INSPECTION - Neurological Exam Neurological Exam: Alert, Awake, Oriented x3 - Psychiatric Exam Psychiatric exam: Normal Affect, Normal Mood - Skin Skin Exam: Dry, Intact, Normal Color, Warm Assessment and Plan - Assessment and Plan (Free Text) Assessment: Patient is a 62 yo homeless male with PMH of COPD presents with L foot cellulitis that now has gangrenous changes. He reports this occurred after a misstep while going down the stairs. He is POD 1 left transmetatarsal amputation. Podiatry recommends likely return to the OR later this week for further debridement. Plan: Left foot cellulitis with gangrenous changes, 2nd toe - Vancomycin 1 g IV q24hrs- check trough before 4th dose - Zosyn 3.375 mg IV q8hrs - Tylenol 650 mg q6hrs for mild pain - Percocet 1-2 tabs q6hrs for moderate-severe pain - Podiatry consult- POD1 left TMA, rec further debridement later this week, non-weight bearing - Post-op left foot XR pending - EKG- NSR - Pt is low risk for podiatry procedure - Ammonium lactate ointment to dry skin as needed - ID consult- rec continue IV abx - Blood Cx never collected - Surg pathology pending - PT consult- utilizing walker with pt, very unsteady, will tx 5x/week - SW consult for discharge planning- attempting possible rehab placement Leukocytosis, acute, improving- likely 2/2 left foot infection - CBC in AM - Afebrile - Vancomycin 1 g IV q24hrs- check trough before 4th dose - Zosyn 3.375 mg IV q8hrs COPD, stable - No outpt meds - CXR- no acute disease IVF: not indicated VTE ppx: SCDs GI ppx: not indicated Code status: full code <Carissa Lombardo - Last Filed: 01/05/18 20:44> Objective - Vital Signs/Intake and Output Vital Signs (last 24 hours): Temp Pulse Resp BP Pulse Ox 98.8 F 85 20 109/70 95 01/05/18 16:33 01/05/18 16:33 01/05/18 16:33 01/05/18 16:33 01/05/18 16:33 - Medications Medications: Current Medications Piperacillin Sod/Tazobactam (Sod 3.375 gm/ Sodium Chloride) 100 mls @ 200 mls/ hr IVPB Q8H [facility] PRN Reason: Protocol Last Admin: 01/05/18 11:33 Dose: 200 mls/hr Vancomycin/Sodium Chloride (Vancomycin 1 Gm/Ns 200 Ml) 1 gm in 200 mls @ 133.333 mls/hr IVPB Q12H [facility] PRN Reason: Protocol Last Admin: 01/05/18 13:44 Dose: 133.333 mls/hr Lactic Acid (Lac-Hydrin 12% Lotion (225 G)) 0 gm EXT Q6 PRN PRN Reason: dry skin Oxycodone/Acetaminophen (Percocet 5/325 Mg Tab) 1 tab PO Q6H PRN PRN Reason: Pain, moderate (4-7) Stop: 01/08/18 11:39 Oxycodone/Acetaminophen (Percocet 5/325 Mg Tab) 2 tab PO Q6H PRN PRN Reason: Pain, severe (8-10) Stop: 01/08/18 11:39 Potassium Chloride (Potassium Chloride Oral Soln) 20 meq PO BID [facility] Stop: 01/06/18 02:00 Last Admin: 01/05/18 17:25 Dose: 20 meq Saccharomyces Boulardii (Florastor) 250 mg PO BID [facility] Last Admin: 01/05/18 17:19 Dose: 250 mg - Labs Labs: 01/05/18 07:08 01/05/18 07:08 Attending/Attestation - Attestation I have personally seen and examined this patient.: Yes I have fully participated in the care of the patient.: Yes I have reviewed all pertinent clinical information, including history, physical exam and plan: Yes Notes (Text): Seen and examined by me S/P TMA continue antibiotics as per Dr Jones follow doug recommendation d/w Resident and I agree with the documentation of the assessment and the plan
[2018-01-05 07:24] LABS: BASO % 0.1 % (0.0-2.0); EOS % 0.1 % (0.0-4.0); HEMOGLOBIN 10.2 g/dL (12.0-18.0); LYMPH # 0.6 K/uL (1.0-4.3); LYMPH % 3.2 % (20.0-40.0); MEAN CELL VOLUME 86.9 fL (80.0-94.0); MEAN CORPUSCULAR HEMOGLOBIN 29.3 pg (27.0-31.0); MEAN CORPUSCULAR HGB CONC 33.7 g/dL (33.0-37.0); MEAN PLATELET VOLUME 6.5 fL (7.2-11.7); NEUT # 17.4 K/uL (1.8-7.0); NEUT % 86.6 % (50.0-75.0); PLATELET COUNT 309 K/uL (130-400); RBC 3.48 Mil/uL (4.40-5.90); RED CELL DISTRIBUTION WIDTH 14.1 % (11.5-14.5); WHITE BLOOD COUNT 20.1 K/uL (4.8-10.8)
[2018-01-05 07:29] LABS: ALB/GLOB RATIO 0.9 (1.0-2.1); ALBUMIN 2.7 g/dL (3.5-5.0); ALT/SGPT 19 U/L (21-72); AST/SGOT 14 U/L (17-59); BLOOD UREA NITROGEN 10 mg/dL (9-20); CALCIUM 7.7 mg/dl (8.6-10.4); GFR AFRICAN-AMERICAN > 60; GFR NON-AFRICAN AMERICAN > 60
[2018-01-05 09:01] LABS: ANISOCYTOSIS SLIGHT; BANDS 1 % (0-2); BASOPHIL 1 % (0-2); HYPOCHROMIC SLIGHT; LYMPHOCYTE 3 % (20-40); MONOCYTE 9 % (0-10); NEUTROPHIL 85 % (50-75); PLATELET ESTIMATE NORMAL (NORMAL); POIKILOCYTOSIS SLIGHT; TOTAL CELLS COUNTED 100
[2018-01-05 09:02] LABS: TOXIC GRANULATION PRESENT
[2018-01-05] MEDS: Saccharomyces Boulardi 250 mg Cap PO SCH ×2 (10:39→17:19)
[2018-01-05] MEDS: Potassium Chloride 20 mEq/15 ml LIQ UD PO SCH ×2 (10:40→17:25)
--- NOTE | 2018-01-05 11:37 | CP.PCM.PN ---
Subjective - Date & Time of Evaluation Date of Evaluation: 01/05/18 Time of Evaluation: 11:37 - Subjective Subjective: Podiatry Progress Note - Dr. 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 Pt admits to mild pain in the left foot that comes and goes. States he slept ok but had some discomfort in the foot. Denies walking on the foot at all at this time. States he was working with physical therapy earlier to practice his non-WB status. Denies F/C/N/V/CP/SOB Objective - Vital Signs/Intake and Output Vital Signs (last 24 hours): Temp Pulse Resp BP Pulse Ox 98.3 F 82 20 103/65 96 01/05/18 07:42 01/05/18 07:42 01/05/18 07:42 01/05/18 07:42 01/05/18 07:42 Intake and Output: 01/05/18 01/05/18 06:59 18:59 Intake Total 1820 Output Total 500 Balance 1320 - Medications Medications: Current Medications Acetaminophen (Tylenol 325mg Tab) 650 mg PO Q6 PRN PRN Reason: Pain, moderate (4-7) Last Admin: 01/05/18 11:21 Dose: 650 mg Piperacillin Sod/Tazobactam (Sod 3.375 gm/ Sodium Chloride) 100 mls @ 200 mls/ hr IVPB Q8H [facility] PRN Reason: Protocol Last Admin: 01/05/18 11:33 Dose: 200 mls/hr Vancomycin/Sodium Chloride (Vancomycin 1 Gm/Ns 200 Ml) 1 gm in 200 mls @ 133.333 mls/hr IVPB Q12H [facility] PRN Reason: Protocol Last Admin: 01/05/18 02:03 Dose: 133.333 mls/hr Lactic Acid (Lac-Hydrin 12% Lotion (225 G)) 0 gm EXT Q6 PRN PRN Reason: dry skin Potassium Chloride (Potassium Chloride Oral Soln) 20 meq PO BID [facility] Stop: 01/06/18 02:00 Last Admin: 01/05/18 10:40 Dose: 20 meq Saccharomyces Boulardii (Florastor) 250 mg PO BID [facility] Last Admin: 01/05/18 10:39 Dose: 250 mg - Labs Labs: 01/05/18 07:08 01/05/18 07:08 - Constitutional Appears: Well, Non-toxic, No Acute Distress - Extremities Exam Additional comments: Left lower extremity focused exam: Vasc: DP/PT pulses palpable 1/4. Temperature gradient warm to warm. CFT to TMA flap is good. +2 pitting edema noted to dorsum of foot. Derm: Open transmetatarsal amputation site with 1" iodoform packing intact to surgical wound. Packing is saturated with sanguinous drainage. 3-0 Prolene retention sutures in place to medial and lateral aspects of surgical wound. Hypopigmented fluctuant skin is noted to plantar medial arch of foot with underlying black discoloration of tissue noted. No active purulence expressed from surgical site today. 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 Wood Labs and vitals reviewed- leukocytosis improving since admission Surgical wound cleaned with saline, packing left in place - dressed with xeroform, ABD, DSD, JOSIE Plan for return to OR later this week for further debridement and possible wound closure Continue IV abx per ID Pt to remain NWB at all times with use of walker or crutches - PT on board Pain management with Percocet and Tylenol prn Will continue to monitor patient closely
[2018-01-05] MEDS ORDERED: Oxycodone/Acetaminophen 5/325 mg Tab PO PRN ×2 (11:38)
--- NOTE | 2018-01-05 13:29 | CP.PCM.PN ---
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 Pt admits to mild pain in the left foot that comes and goes. States he slept ok but had some discomfort in the foot. Objective - Vital Signs/Intake and Output Vital Signs (last 24 hours): Temp Pulse Resp BP Pulse Ox 98.3 F 82 20 103/65 96 01/05/18 07:42 01/05/18 07:42 01/05/18 07:42 01/05/18 07:42 01/05/18 07:42 Intake and Output: 01/05/18 01/05/18 06:59 18:59 Intake Total 1820 Output Total 500 Balance 1320 - Medications Medications: Current Medications Piperacillin Sod/Tazobactam (Sod 3.375 gm/ Sodium Chloride) 100 mls @ 200 mls/ hr IVPB Q8H [facility] PRN Reason: Protocol Last Admin: 01/05/18 11:33 Dose: 200 mls/hr Vancomycin/Sodium Chloride (Vancomycin 1 Gm/Ns 200 Ml) 1 gm in 200 mls @ 133.333 mls/hr IVPB Q12H [facility] PRN Reason: Protocol Last Admin: 01/05/18 02:03 Dose: 133.333 mls/hr Lactic Acid (Lac-Hydrin 12% Lotion (225 G)) 0 gm EXT Q6 PRN PRN Reason: dry skin Oxycodone/Acetaminophen (Percocet 5/325 Mg Tab) 1 tab PO Q6H PRN PRN Reason: Pain, moderate (4-7) Stop: 01/08/18 11:39 Oxycodone/Acetaminophen (Percocet 5/325 Mg Tab) 2 tab PO Q6H PRN PRN Reason: Pain, severe (8-10) Stop: 01/08/18 11:39 Potassium Chloride (Potassium Chloride Oral Soln) 20 meq PO BID [facility] Stop: 01/06/18 02:00 Last Admin: 01/05/18 10:40 Dose: 20 meq Saccharomyces Boulardii (Florastor) 250 mg PO BID [facility] Last Admin: 01/05/18 10:39 Dose: 250 mg - Labs Labs: 01/05/18 07:08 01/05/18 07:08 - Constitutional Appears: Non-toxic, Chronically Ill - Head Exam Head Exam: NORMOCEPHALIC - Eye Exam Eye Exam: PERRL - ENT Exam ENT Exam: Mucous Membranes Dry - Neck Exam Neck Exam: absent: Lymphadenopathy - Respiratory Exam Respiratory Exam: Decreased Breath Sounds - Cardiovascular Exam Cardiovascular Exam: REGULAR RHYTHM - GI/Abdominal Exam GI & Abdominal Exam: Distended - Rectal Exam Rectal Exam: Deferred - Exam Exam: NORMAL INSPECTION Assessment and Plan (1) Cellulitis, leg Status: Acute (2) Gangrene of extremity Status: Acute - Assessment and Plan (Free Text) Assessment: cont iv antibiotics wound care vascular eval
[2018-01-06] MEDS: Vancomycin 1 gm/NS 200 ml 1 GM/200 ML BAG IVPB SCH ×3 (01:40→21:28)
[2018-01-06] MEDS: Piperacillin/Tazobact 3.375 GM in Sodium Chloride 100 ML IVPB SCH ×3 (03:54→19:35)
--- NOTE | 2018-01-06 06:19 | CP.PCM.PN ---
Subjective - Date & Time of Evaluation Date of Evaluation: 01/06/18 Time of Evaluation: 09:15 - Subjective Subjective: PGY-1 Maria T Gallegos D.O. Medicine Progress note for Dr. Phipps service : Patient was seen and examined this morning. He is resting comfortably in bed. 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 He complains of only mild intermittent tenderness. He is currently non-weight bearing. Podiatry will take the patient back to the OR for debridement on Thursday. Patient denies fever and chills. He has good sleep and appetite. Pt denies diarrhea or constipation. Discussed drinking 2 Ensures each day for supplementation due to low albumin. Nursing communicated pt may be ; however, this was observed post-op after the pt received anesthesia. Pt was alert and oriented when examined today. Will continue to monitor. Objective - Vital Signs/Intake and Output Vital Signs (last 24 hours): Temp Pulse Resp BP Pulse Ox 98.8 F 85 20 109/70 95 01/05/18 16:33 01/05/18 16:33 01/05/18 16:33 01/05/18 16:33 01/05/18 16:33 Intake and Output: 01/05/18 01/06/18 18:59 06:59 Intake Total 440 Output Total 1200 Balance -760 - Medications Medications: Current Medications Piperacillin Sod/Tazobactam (Sod 3.375 gm/ Sodium Chloride) 100 mls @ 200 mls/ hr IVPB Q8H [facility] PRN Reason: Protocol Last Admin: 01/06/18 03:54 Dose: 200 mls/hr Vancomycin/Sodium Chloride (Vancomycin 1 Gm/Ns 200 Ml) 1 gm in 200 mls @ 133.333 mls/hr IVPB Q12H [facility] PRN Reason: Protocol Last Admin: 01/06/18 01:40 Dose: 133.333 mls/hr Lactic Acid (Lac-Hydrin 12% Lotion (225 G)) 0 gm EXT Q6 PRN PRN Reason: dry skin Oxycodone/Acetaminophen (Percocet 5/325 Mg Tab) 1 tab PO Q6H PRN PRN Reason: Pain, moderate (4-7) Stop: 01/08/18 11:39 Oxycodone/Acetaminophen (Percocet 5/325 Mg Tab) 2 tab PO Q6H PRN PRN Reason: Pain, severe (8-10) Stop: 01/08/18 11:39 Saccharomyces Nichol (Florastor) 250 mg PO BID [facility] Last Admin: 01/05/18 17:19 Dose: 250 mg - Labs Labs: 01/05/18 07:08 01/05/18 07:08 01/06/18 08:20 01/06/18 08:20 Calcium 7.9 mg/dl (8.6-10.4) L 01/06/18 08:20 Phosphorus 2.9 mg/dL (2.5-4.5) 01/06/18 08:20 Magnesium 2.0 mg/dL (1.6-2.3) 01/06/18 08:20 Total Bilirubin 0.4 mg/dL (0.2-1.3) 01/06/18 08:20 AST 27 U/L (17-59) 01/06/18 08:20 ALT 19 U/L (21-72) L 01/06/18 08:20 Alkaline Phosphatase 89 U/L (38-126) 01/06/18 08:20 Albumin 2.8 g/dL (3.5-5.0) L 01/06/18 08:20 - Constitutional Appears: Well, No Acute Distress, Other (thin) - Head Exam Head Exam: ATRAUMATIC, NORMAL INSPECTION, NORMOCEPHALIC - Eye Exam Eye Exam: EOMI, Normal appearance - ENT Exam ENT Exam: Mucous Membranes Moist - Neck Exam Neck Exam: Normal Inspection - Respiratory Exam Respiratory Exam: Clear to Ausculation Bilateral, NORMAL BREATHING PATTERN - Cardiovascular Exam Cardiovascular Exam: REGULAR RHYTHM, +S1, +S2 - GI/Abdominal Exam GI & Abdominal Exam: Soft. absent: Tenderness - Rectal Exam Rectal Exam: Deferred - Extremities Exam Extremities Exam: Full ROM Additional comments: left foot thoroughly wrapped s/p TMA - Back Exam Back Exam: NORMAL INSPECTION - Neurological Exam Neurological Exam: Alert, Awake, Oriented x3 - Psychiatric Exam Psychiatric exam: Normal Affect, Normal Mood - Skin Skin Exam: Dry, Intact, Normal Color, Warm Additional comments: erythema and dry skin on LLE below the knee Assessment and Plan - Assessment and Plan (Free Text) Assessment: Patient is a 62 yo homeless male with PMH of COPD presents with L foot cellulitis that now has gangrenous changes. He reports this occurred after a misstep while going down the stairs. He is POD 1 left transmetatarsal amputation. Podiatry recommends return to the OR Thursday for further debridement. Pt will go to rehab following discharge. Plan: Left foot cellulitis with gangrenous changes, 2nd toe- POD2 s/p left TMA - Will increase frequency of Vancomycin to 1 g IV q8hrs- trough 11.6, recheck tomorrow 12 PM - Zosyn 3.375 mg IV q8hrs - Tylenol 650 mg q6hrs for mild pain - Percocet 1-2 tabs q6hrs for moderate-severe pain - Podiatry consult- rec further debridement Thursday, non-weight bearing - Post-op left foot XR- s/p TMA, limited post-op changes - Ammonium lactate ointment to dry skin as needed - ID consult- rec continue IV abx - Blood Cx never collected - Surg pathology pending - PT consult- utilizing walker with pt, very unsteady, will tx 5x/week - SW consult for discharge planning- CRISTEL placement Leukocytosis, acute, improving- likely 2/2 left foot infection - 01/06 17.5 - CBC in AM - Afebrile - Vancomycin 1 g IV q8hrs - Zosyn 3.375 mg IV q8hrs Hypoalbuminemia, stable- 2.8 - 2 Ensures/day - CMP in AM COPD, stable - No outpt meds - CXR- no acute disease IVF: not indicated VTE ppx: heparin 5000u SC q8hrs, SCDs GI ppx: Florastor Diet: heart healthy + supplemental Ensure BID Code status: full code Dispo: Rehab at [facility] in [place]
[2018-01-06 08:29] LABS: BASO % 0.2 % (0.0-2.0); EOS # 0.2 K/uL (0.0-0.7); EOS % 0.9 % (0.0-4.0); HEMOGLOBIN 10.9 g/dL (12.0-18.0); LYMPH # 0.9 K/uL (1.0-4.3); MEAN CELL VOLUME 87.8 fL (80.0-94.0); MEAN CORPUSCULAR HEMOGLOBIN 29.9 pg (27.0-31.0); MEAN CORPUSCULAR HGB CONC 34.1 g/dL (33.0-37.0); MEAN PLATELET VOLUME 6.5 fL (7.2-11.7); MONO # 1.8 K/uL (0.0-0.8); MONO % 10.1 % (0.0-10.0); NEUT # 14.7 K/uL (1.8-7.0); NEUT % 83.8 % (50.0-75.0); PLATELET COUNT 351 K/uL (130-400); RBC 3.64 Mil/uL (4.40-5.90); RED CELL DISTRIBUTION WIDTH 14.2 % (11.5-14.5); WHITE BLOOD COUNT 17.5 K/uL (4.8-10.8)
[2018-01-06] MEDS: Saccharomyces Boulardi 250 mg Cap PO SCH ×3 (08:35→17:59)
[2018-01-06 08:58] LABS: ALB/GLOB RATIO 0.8 (1.0-2.1); ALBUMIN 2.8 g/dL (3.5-5.0); ALT/SGPT 19 U/L (21-72); AST/SGOT 27 U/L (17-59); BLOOD UREA NITROGEN 7 mg/dL (9-20); CALCIUM 7.9 mg/dl (8.6-10.4); GFR AFRICAN-AMERICAN > 60; GFR NON-AFRICAN AMERICAN > 60
--- NOTE | 2018-01-06 09:10 | RAD ---
Date of service: 01/05/2018 PROCEDURE: Left Foot Radiographs. HISTORY: s/p surgery COMPARISON: None. FINDINGS: BONES: Transmetatarsal amputation noted diffusely at the left foot with soft tissue emphysematous changes suggesting recent performance of the procedure. Clinically correlate. Bony midfoot and forefoot appear are: 4 limited degenerative changes at the talonavicular joint. No acute fracture appreciable or focal destructive bony lesion evident. JOINTS: As above. SOFT TISSUES: As above. OTHER FINDINGS: None. IMPRESSION: Likely status post recent transmetatarsal amputation with limited postoperative changes identified in local soft tissues at the midfoot as discussed above. Clinically correlate further.
[2018-01-06 09:25] LABS: EOSINOPHIL 1 % (0-4); LYMPHOCYTE 7 % (20-40); MONOCYTE 10 % (0-10); NEUTROPHIL 82 % (50-75); PLATELET ESTIMATE NORMAL (NORMAL); TOTAL CELLS COUNTED 100
[2018-01-06 09:26] LABS: HYPOCHROMIC SLIGHT
--- NOTE | 2018-01-06 13:31 | CP.PCM.PN ---
Subjective - Date & Time of Evaluation Date of Evaluation: 01/06/18 Time of Evaluation: 13:31 - Subjective Subjective: Podiatry Progress Note - Dr. 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 Pt admits to mild pain in the left foot that comes and goes. States his pain to the left foot decreased since yesterday. Reports increased pain with dressing changes. Denies walking on the foot at all at this time. Denies F/C/N/V/CP/SOB Objective - Vital Signs/Intake and Output Vital Signs (last 24 hours): Temp Pulse Resp BP Pulse Ox 98.5 F 77 20 107/66 96 01/06/18 07:57 01/06/18 07:57 01/06/18 07:57 01/06/18 07:57 01/06/18 07:57 Intake and Output: 01/06/18 01/06/18 06:59 18:59 Intake Total 990 Output Total 2000 Balance -1010 - Medications Medications: Current Medications Acetaminophen (Tylenol 325mg Tab) 650 mg PO Q6 PRN PRN Reason: Pain, Mild (1-3) Piperacillin Sod/Tazobactam (Sod 3.375 gm/ Sodium Chloride) 100 mls @ 200 mls/ hr IVPB Q8H [facility] PRN Reason: Protocol Last Admin: 01/06/18 13:11 Dose: 200 mls/hr Vancomycin/Sodium Chloride (Vancomycin 1 Gm/Ns 200 Ml) 1 gm in 200 mls @ 133.333 mls/hr IVPB Q12H [facility] PRN Reason: Protocol Last Admin: 01/06/18 01:40 Dose: 133.333 mls/hr Lactic Acid (Lac-Hydrin 12% Lotion (225 G)) 0 gm EXT Q6 PRN PRN Reason: dry skin Oxycodone/Acetaminophen (Percocet 5/325 Mg Tab) 1 tab PO Q6H PRN PRN Reason: Pain, moderate (4-7) Stop: 01/08/18 11:39 Oxycodone/Acetaminophen (Percocet 5/325 Mg Tab) 2 tab PO Q6H PRN PRN Reason: Pain, severe (8-10) Stop: 01/08/18 11:39 Saccharomyces Boulardii (Florastor) 250 mg PO BID [facility] Last Admin: 01/06/18 11:43 Dose: Not Given - Labs Labs: 01/06/18 08:20 01/06/18 08:20 - Constitutional Appears: Well, Non-toxic, No Acute Distress - Extremities Exam Additional comments: Left lower extremity focused exam: Vasc: DP/PT pulses palpable 1/4. Temperature gradient warm to warm. Capillary return to TMA surgical wound flap is WNL. +1 pitting edema noted to dorsum of foot, decreasing since admission Derm: Open transmetatarsal amputation site with 1" iodoform packing intact to surgical wound. Packing is saturated with sanguinous drainage. 3-0 Prolene retention sutures in place to medial and lateral aspects of surgical wound. Hypopigmented fluctuant skin is noted to plantar medial arch of foot with underlying black discoloration of tissue noted. After packing removed, mild malodor noted with necrotic tissue and active purulence noted along second metatarsal tract. 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 Wood Labs and vitals reviewed- leukocytosis improving since admission Packing pulled and surgical wound cleansed with saline Plan for return to OR on Thursday at 1pm for further debridement and possible wound closure Continue IV abx per ID Pt to remain NWB at all times with use of walker or crutches - PT on board Pain management with Percocet and Tylenol prn Will continue to monitor patient closely
--- NOTE | 2018-01-06 15:21 | CP.PCM.PN ---
Subjective - Date & Time of Evaluation Date of Evaluation: 01/06/18 Time of Evaluation: 09:00 - Subjective Subjective: s/p TMA rx in progress for gangrene left foot Objective - Vital Signs/Intake and Output Vital Signs (last 24 hours): Temp Pulse Resp BP Pulse Ox 98.5 F 77 20 107/66 96 01/06/18 07:57 01/06/18 07:57 01/06/18 07:57 01/06/18 07:57 01/06/18 07:57 Intake and Output: 01/06/18 01/06/18 06:59 18:59 Intake Total 990 Output Total 1999 Balance -1010 - Medications Medications: Current Medications Acetaminophen (Tylenol 325mg Tab) 650 mg PO Q6 PRN PRN Reason: Pain, Mild (1-3) Heparin Sodium (Porcine) (Heparin) 5,000 units SC Q8 [facility] Last Admin: 01/06/18 13:57 Dose: 5,000 units Piperacillin Sod/Tazobactam (Sod 3.375 gm/ Sodium Chloride) 100 mls @ 200 mls/ hr IVPB Q8H [facility] PRN Reason: Protocol Last Admin: 01/06/18 13:11 Dose: 200 mls/hr Vancomycin/Sodium Chloride (Vancomycin 1 Gm/Ns 200 Ml) 1 gm in 200 mls @ 133.333 mls/hr IVPB Q12H [facility] PRN Reason: Protocol Last Admin: 01/06/18 13:57 Dose: 133.333 mls/hr Lactic Acid (Lac-Hydrin 12% Lotion (225 G)) 0 gm EXT Q6 PRN PRN Reason: dry skin Oxycodone/Acetaminophen (Percocet 5/325 Mg Tab) 1 tab PO Q6H PRN PRN Reason: Pain, moderate (4-7) Stop: 01/08/18 11:39 Last Admin: 01/06/18 13:58 Dose: 1 tab Oxycodone/Acetaminophen (Percocet 5/325 Mg Tab) 2 tab PO Q6H PRN PRN Reason: Pain, severe (8-10) Stop: 01/08/18 11:39 Saccharomyces Boulardii (Florastor) 250 mg PO BID [facility] Last Admin: 01/06/18 11:43 Dose: Not Given - Labs Labs: 01/06/18 08:20 01/06/18 08:20 - Constitutional Appears: Non-toxic - Head Exam Head Exam: NORMOCEPHALIC - Eye Exam Eye Exam: PERRL - ENT Exam ENT Exam: Mucous Membranes Dry - Neck Exam Neck Exam: absent: Lymphadenopathy - Respiratory Exam Respiratory Exam: Decreased Breath Sounds - Cardiovascular Exam Cardiovascular Exam: REGULAR RHYTHM - GI/Abdominal Exam GI & Abdominal Exam: Distended, Soft Assessment and Plan (1) Cellulitis, leg Status: Acute (2) Gangrene of extremity Status: Acute - Assessment and Plan (Free Text) Assessment: rx renewed
[2018-01-07] MEDS: Piperacillin/Tazobact 3.375 GM in Sodium Chloride 100 ML IVPB SCH ×3 (04:31→20:30)
[2018-01-07] MEDS: Vancomycin 1 gm/NS 200 ml 1 GM/200 ML BAG IVPB SCH ×3 (05:53→21:04)
--- NOTE | 2018-01-07 05:53 | CP.PCM.PN ---
Subjective - Date & Time of Evaluation Date of Evaluation: 01/07/18 Time of Evaluation: 08:15 - Subjective Subjective: PGY-1 Maria T Gallegos D.O. Medicine Progress note for Dr. Phipps service : Patient was seen and examined this morning. He is resting comfortably in bed. 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 He complains of only mild intermittent tenderness that is improving. He is currently non-weight bearing and working with PT with walkers and crutches. Podiatry will take the patient back to the OR for debridement on tomorrow. Patient denies fever and chills. He has good sleep and appetite. He is drinking 2 Ensures each day. Pt denies diarrhea or constipation. Discussed pt going to [facility] tomorrow post-op with IV antibiotics. Objective - Vital Signs/Intake and Output Vital Signs (last 24 hours): Temp Pulse Resp BP Pulse Ox 98.1 F 79 20 127/72 96 01/06/18 23:50 01/06/18 23:50 01/06/18 23:50 01/06/18 23:50 01/06/18 23:50 Intake and Output: 01/06/18 01/07/18 18:59 06:59 Intake Total 800 Output Total 700 Balance 100 - Medications Medications: Current Medications Acetaminophen (Tylenol 325mg Tab) 650 mg PO Q6 PRN PRN Reason: Pain, Mild (1-3) Heparin Sodium (Porcine) (Heparin) 5,000 units SC Q8 [facility] Last Admin: 01/06/18 21:29 Dose: 5,000 units Piperacillin Sod/Tazobactam (Sod 3.375 gm/ Sodium Chloride) 100 mls @ 200 mls/ hr IVPB Q8H [facility] PRN Reason: Protocol Last Admin: 01/07/18 04:31 Dose: 200 mls/hr Vancomycin/Sodium Chloride (Vancomycin 1 Gm/Ns 200 Ml) 1 gm in 200 mls @ 133.333 mls/hr IVPB Q8 [facility] PRN Reason: Protocol Stop: 01/11/18 22:01 Last Admin: 01/07/18 05:05 Dose: 133.333 mls/hr Lactic Acid (Lac-Hydrin 12% Lotion (225 G)) 0 gm EXT Q6 PRN PRN Reason: dry skin Oxycodone/Acetaminophen (Percocet 5/325 Mg Tab) 1 tab PO Q6H PRN PRN Reason: Pain, moderate (4-7) Stop: 01/08/18 11:39 Last Admin: 01/06/18 13:58 Dose: 1 tab Oxycodone/Acetaminophen (Percocet 5/325 Mg Tab) 2 tab PO Q6H PRN PRN Reason: Pain, severe (8-10) Stop: 01/08/18 11:39 Saccharomyces Boulardii (Florastor) 250 mg PO BID [facility] Last Admin: 01/06/18 17:59 Dose: 250 mg - Labs Labs: 01/06/18 08:20 01/06/18 08:20 01/07/18 06:52 01/07/18 06:52 Total Bilirubin 0.1 mg/dL (0.2-1.3) L 01/07/18 06:52 AST 18 U/L (17-59) 01/07/18 06:52 ALT 24 U/L (21-72) 01/07/18 06:52 Alkaline Phosphatase 68 U/L (38-126) 01/07/18 06:52 Albumin 2.6 g/dL (3.5-5.0) L 01/07/18 06:52 Hemoglobin A1c 6.0 % (4.2-6.5) 01/06/18 13:57 - Constitutional Appears: Well, No Acute Distress, Other (thin) - Head Exam Head Exam: ATRAUMATIC, NORMAL INSPECTION - Eye Exam Eye Exam: EOMI, Normal appearance - ENT Exam ENT Exam: Mucous Membranes Moist, Normal Exam - Neck Exam Neck Exam: Full ROM, Normal Inspection - Respiratory Exam Respiratory Exam: Clear to Ausculation Bilateral, NORMAL BREATHING PATTERN - Cardiovascular Exam Cardiovascular Exam: REGULAR RHYTHM, +S1, +S2 - GI/Abdominal Exam GI & Abdominal Exam: Soft, Normal Bowel Sounds - Rectal Exam Rectal Exam: Deferred - Extremities Exam Extremities Exam: Full ROM, Normal Inspection. absent: Pedal Edema Additional comments: Left foot wrapped, mild dry skin and erythema of ankle - Back Exam Back Exam: NORMAL INSPECTION - Neurological Exam Neurological Exam: Alert, Awake, Oriented x3 - Psychiatric Exam Psychiatric exam: Normal Affect, Normal Mood - Skin Skin Exam: Dry, Intact, Normal Color, Warm Additional comments: excessively dry lower extremity skin below the knee Assessment and Plan - Assessment and Plan (Free Text) Assessment: Patient is a 62 yo homeless male with PMH of COPD presents with L foot cellulitis that now has gangrenous changes. He reports this occurred after a misstep while going down the stairs. He is POD 1 left transmetatarsal amputation. Podiatry recommends return to the OR Thursday for further debridement. Pt will go to rehab with IV abx following discharge. Plan: Left foot cellulitis with gangrenous changes, 2nd toe- POD3 s/p left TMA - Vancomycin 1 g IV q8hrs- trough 13.6 - Zosyn 3.375 mg IV q8hrs - Tylenol 650 mg q6hrs for mild pain - Percocet 1-2 tabs q6hrs for moderate-severe pain - Podiatry consult- rec further debridement tomorrow (Thursday), non-weight bearing - Post-op left foot XR- s/p TMA, limited post-op changes - Ammonium lactate ointment to dry skin BID - ID consult- rec continue IV abx for 6 weeks total - PICC line placement prior to discharge - Blood Cx never collected - Surg pathology pending - PT consult- utilizing walker with pt, very unsteady, will tx 5x/week - SW consult for discharge planning- CRISTEL placement Leukocytosis, acute, improving- likely 2/2 left foot infection - 15.1 today - CBC in AM - Afebrile - Vancomycin 1 g IV q8hrs - Zosyn 3.375 mg IV q8hrs Hypoalbuminemia, stable- 2.6 - 2 Ensures/day - CMP in AM COPD, stable - No outpt meds - CXR- no acute disease IVF: not indicated VTE ppx: SCDs, CI pre-op GI ppx: Florastor Diet: heart healthy + supplemental Ensure BID, NPO at midnight Code status: full code [facility] [place], likely discharge tomorrow
[2018-01-07 07:13] LABS: BASO # 0.1 K/uL (0.0-0.2); BASO % 0.4 % (0.0-2.0); EOS # 0.2 K/uL (0.0-0.7); EOS % 1.6 % (0.0-4.0); HEMOGLOBIN 10.5 g/dL (12.0-18.0); LYMPH # 1.2 K/uL (1.0-4.3); LYMPH % 7.7 % (20.0-40.0); MEAN CELL VOLUME 87.8 fL (80.0-94.0); MEAN CORPUSCULAR HGB CONC 34.2 g/dL (33.0-37.0); MEAN PLATELET VOLUME 6.2 fL (7.2-11.7); MONO # 1.5 K/uL (0.0-0.8); MONO % 10.1 % (0.0-10.0); NEUT # 12.1 K/uL (1.8-7.0); NEUT % 80.2 % (50.0-75.0); NRBC % 0.1 % (0.0-2.0); PLATELET COUNT 376 K/uL (130-400); RBC 3.48 Mil/uL (4.40-5.90); RED CELL DISTRIBUTION WIDTH 14.3 % (11.5-14.5); WHITE BLOOD COUNT 15.1 K/uL (4.8-10.8)
[2018-01-07 07:38] LABS: ALB/GLOB RATIO 0.8 (1.0-2.1); ALBUMIN 2.6 g/dL (3.5-5.0); ALT/SGPT 24 U/L (21-72); AST/SGOT 18 U/L (17-59); BLOOD UREA NITROGEN 10 mg/dL (9-20); GFR AFRICAN-AMERICAN > 60; GFR NON-AFRICAN AMERICAN > 60
[2018-01-07] MEDS: Saccharomyces Boulardi 250 mg Cap PO SCH ×3 (08:33→17:42)
[2018-01-07 09:06] LABS: BANDS 1 % (0-2); EOSINOPHIL 2 % (0-4); LYMPHOCYTE 8 % (20-40); MONOCYTE 5 % (0-10); MYELOCYTE 2 % (0-0); NEUTROPHIL 81 % (50-75); PLATELET ESTIMATE NORMAL (NORMAL); REACTIVE LYMPHOCYTES 1 % (0-0); TOTAL CELLS COUNTED 100
[2018-01-07 09:07] LABS: HYPOCHROMIC SLIGHT
[2018-01-07] MEDS: Ammonium Lactate 12% Lotion (225 g) EXT SCH ×2 (09:41→17:43)
--- NOTE | 2018-01-07 09:57 | CP.PCM.PN ---
Subjective - Date & Time of Evaluation Date of Evaluation: 01/07/18 Time of Evaluation: 09:57 - Subjective Subjective: Podiatry Progress Note - Dr. 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 Pt admits to intermittent pain, resolving over the last few days. Confirms that he has not been bearing weight to the LLE at all. States physical therapy is helping him ambulate without putting weight on the left side. Is aware and agreeable of surgery tomorrrow to perform further cleaning of the wound. Denies F/C/N/V/CP/SOB Objective - Vital Signs/Intake and Output Vital Signs (last 24 hours): Temp Pulse Resp BP Pulse Ox 98.5 F 77 20 120/77 96 01/07/18 07:32 01/07/18 07:32 01/07/18 07:32 01/07/18 07:32 01/07/18 07:32 Intake and Output: 01/07/18 01/07/18 06:59 18:59 Intake Total 1400 Output Total 1300 Balance 100 - Medications Medications: Current Medications Acetaminophen (Tylenol 325mg Tab) 650 mg PO Q6 PRN PRN Reason: Pain, Mild (1-3) Heparin Sodium (Porcine) (Heparin) 5,000 units SC Q8 [facility] Last Admin: 01/07/18 06:04 Dose: 5,000 units Piperacillin Sod/Tazobactam (Sod 3.375 gm/ Sodium Chloride) 100 mls @ 200 mls/ hr IVPB Q8H [facility] PRN Reason: Protocol Last Admin: 01/07/18 04:31 Dose: 200 mls/hr Vancomycin/Sodium Chloride (Vancomycin 1 Gm/Ns 200 Ml) 1 gm in 200 mls @ 133.333 mls/hr IVPB Q8 [facility] PRN Reason: Protocol Stop: 01/11/18 22:01 Last Admin: 01/07/18 05:53 Dose: 133.333 mls/hr Lactic Acid (Lac-Hydrin 12% Lotion (225 G)) 0 gm EXT BID [facility] Last Admin: 01/07/18 09:41 Dose: 1 applic Oxycodone/Acetaminophen (Percocet 5/325 Mg Tab) 1 tab PO Q6H PRN PRN Reason: Pain, moderate (4-7) Stop: 01/08/18 11:39 Last Admin: 01/06/18 13:58 Dose: 1 tab Oxycodone/Acetaminophen (Percocet 5/325 Mg Tab) 2 tab PO Q6H PRN PRN Reason: Pain, severe (8-10) Stop: 01/08/18 11:39 Saccharomyces Kandicedii (Florastor) 250 mg PO BID [facility] Last Admin: 01/07/18 08:33 Dose: 250 mg - Labs Labs: 01/07/18 06:52 01/07/18 06:52 - Constitutional Appears: Well, Non-toxic, No Acute Distress - Extremities Exam Additional comments: Left lower extremity focused exam: Vasc: DP/PT pulses palpable 1/4. Temperature gradient warm to warm. Capillary return to TMA surgical wound flap is WNL. +1 pitting edema noted to dorsum of foot, decreasing since admission Derm: Open transmetatarsal amputation site with 1" iodoform packing intact to surgical wound. Packing slightly saturated with sanguinous drainage. 3-0 Prolene retention sutures in place to medial and lateral aspects of surgical wound. Hypopigmented fluctuant skin is noted to plantar medial arch of foot with underlying black discoloration of tissue noted. 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 Wood Labs and vitals reviewed- leukocytosis improving since admission Continued infectious processes persists along track of 2nd metatarsal - further debridement warranted Packing left in place, ewa wound cleaned with saline and L foot dressed with xeroform, ABD, DSD Plan for return to OR tomorrow at 1pm for further wound debridement of L foot Continue IV abx per ID Pt to remain NWB at all times with use of walker or crutches - PT on board Pain management with Percocet and Tylenol prn Will continue to monitor patient closely
--- NOTE | 2018-01-07 17:03 | CP.PCM.PN ---
Subjective - Date & Time of Evaluation Date of Evaluation: 01/07/18 Time of Evaluation: 09:00 - Subjective Subjective: events noted for OR in am await wound cultures Objective - Vital Signs/Intake and Output Vital Signs (last 24 hours): Temp Pulse Resp BP Pulse Ox 98.5 F 77 20 120/77 96 01/07/18 07:32 01/07/18 07:32 01/07/18 07:32 01/07/18 07:32 01/07/18 07:32 Intake and Output: 01/07/18 01/07/18 06:59 18:59 Intake Total 1400 500 Output Total 1300 Balance 100 500 - Medications Medications: Current Medications Acetaminophen (Tylenol 325mg Tab) 650 mg PO Q6 PRN PRN Reason: Pain, Mild (1-3) Heparin Sodium (Porcine) (Heparin) 5,000 units SC Q8 [facility] Last Admin: 01/07/18 14:08 Dose: 5,000 units Piperacillin Sod/Tazobactam (Sod 3.375 gm/ Sodium Chloride) 100 mls @ 200 mls/ hr IVPB Q8H [facility] PRN Reason: Protocol Last Admin: 01/07/18 12:07 Dose: 200 mls/hr Vancomycin/Sodium Chloride (Vancomycin 1 Gm/Ns 200 Ml) 1 gm in 200 mls @ 133.333 mls/hr IVPB Q8 [facility] PRN Reason: Protocol Stop: 01/11/18 22:01 Last Admin: 01/07/18 14:08 Dose: 133.333 mls/hr Lactic Acid (Lac-Hydrin 12% Lotion (225 G)) 0 gm EXT BID [facility] Last Admin: 01/07/18 09:41 Dose: 1 applic Oxycodone/Acetaminophen (Percocet 5/325 Mg Tab) 1 tab PO Q6H PRN PRN Reason: Pain, moderate (4-7) Stop: 01/08/18 11:39 Last Admin: 01/06/18 13:58 Dose: 1 tab Oxycodone/Acetaminophen (Percocet 5/325 Mg Tab) 2 tab PO Q6H PRN PRN Reason: Pain, severe (8-10) Stop: 01/08/18 11:39 Saccharomyces Boulardii (Florastor) 250 mg PO BID [facility] Last Admin: 01/07/18 11:35 Dose: Not Given - Labs Labs: 01/07/18 06:52 01/07/18 06:52 - Constitutional Appears: Non-toxic, Chronically Ill - Head Exam Head Exam: NORMOCEPHALIC - Eye Exam Eye Exam: PERRL - ENT Exam ENT Exam: Mucous Membranes Dry - Neck Exam Neck Exam: absent: Lymphadenopathy - Respiratory Exam Respiratory Exam: Decreased Breath Sounds - Cardiovascular Exam Cardiovascular Exam: REGULAR RHYTHM - GI/Abdominal Exam GI & Abdominal Exam: Distended - Rectal Exam Rectal Exam: Deferred - Exam Exam: NORMAL INSPECTION Assessment and Plan (1) Cellulitis, leg Status: Acute (2) Gangrene of extremity Status: Acute
--- NOTE | 2018-01-07 21:25 | CARD ---
APPROVED REPORT Date of service: 01/03/2018 EKG Measurement Heart [id number] <Conclusion> Sinus tachycardia with premature supraventricular complexes Left axis deviation Abnormal ECG
[2018-01-08] MEDS: Piperacillin/Tazobact 3.375 GM in Sodium Chloride 100 ML IVPB SCH ×2 (04:26→12:01)
--- NOTE | 2018-01-08 05:56 | OP ---
Copied To: ONOFRE BORJAS MD Attending MD: David Peraza DPM PROCEDURE DATE: 01/04/2018 SURGEON: David Peraza DPM STRAND GALVANIZER: Onofre Borjas, PGY-1, Luana James, PGY-2 ANESTHESIOLOGIST: Dr. Pruitt. TYPE OF ANESTHESIA: General endo. PREOPERATIVE DIAGNOSIS: Left foot gas gangrene. POSTOPERATIVE DIAGNOSIS: Left foot gas gangrene. PROCEDURE: Left foot transmetatarsal amputation. INDICATIONS: The patient is a 62-year-old male with the above diagnosis. The patient has exhausted all conservative treatment at this time and now requires surgical intervention. The patient signed a consent after careful explanation of risks, benefits, complications, and alternatives for surgical procedure. No guarantees were given nor implied. NPO status was confirmed prior to taking the patient to the OR. PREPARATION: The patient was brought into the operating room and placed on the operating room table in a supine position. Timeout was performed for identification of the correct patient and procedure. After induction of general endo sedation, the left lower extremity was then prepped and draped in normal sterile manner and the procedure began. 20 mL of a 1:1 mixture of 2% lidocaine plain and 0.25% Marcaine plain was injected in an ankle block fashion to the left lower extremity to obtain local anesthesia. No tourniquet was used during the procedure. DESCRIPTION OF PROCEDURE: Attention was directed to the distal aspect of the left foot, where digits 2 and 3 were evidenced as dry, gangrenous, and necrotic, as well as to the medial arch where a pocket of fluctuance and discoloration could be observed superficially extending from the forefoot to the midfoot. At this time, a #10 blade was used to create a fish-mouth incision circumferentially around the midfoot with the plantar incision made distally to create a longer plantar flap. At this time, approximately 40 mL of purulence was expressed from the plantar midfoot. All necrotic and nonviable soft tissue was then excised from the transmetatarsal amputation site using a sterile #10 blade and sterile forceps. Next, all soft tissues were freed from the distal aspect of the neck and shaft of the first metatarsal and the neck and shaft of metatarsals 2 though 5, and periosteum was freed using a lozano elevator. A sagittal saw was then used to resect the first metatarsal at the level of the mid shaft and the blade was angled from dorsal distal to plantar proximal. This step was then repeated for metatarsals 2 through 5. All devitalized bones and tissue were passed off the field and sent for pathology. Remaining sharp bone edges were then debrided down to smooth edges using the bone rasp. The pulse lavage was utilized to copiously irrigate the abscess site and amputation site with saline. The abscess site was packed with 1" Iodosorb packing and the distal aspect of the amputation site was covered with remaining packing material. The plantar tissue was then brought up dorsally to cover the distal aspect of the metatarsals, and a 3-0 Prolene suture was utilized to place retention sutures on the surgical incision site skin edges. The transmetatarsal amputation site was left open. The left foot was dressed with Adaptic, ABD dressing, and Kerlix. POSTOPERATIVE CONDITION: The patient tolerated the anesthesia and procedure well and was escorted to the recovery room with vital signs stable and neurovascular status intact to the left lower extremity. The patient is to be nonweightbearing to the left lower extremity with crutches. The patient will receive administration of IV antibiotics while inpatient in the hospital, and Podiatry will continue to monitor while in-house. The dressing will not be changed until of this week. ONOFRE BORJAS MD David Peraza DPM [facility]
[2018-01-08] MEDS: Vancomycin 1 gm/NS 200 ml 1 GM/200 ML BAG IVPB SCH ×2 (06:03→14:35)
[2018-01-08 07:22] LABS: BASO % 0.3 % (0.0-2.0); EOS # 0.4 K/uL (0.0-0.7); EOS % 2.9 % (0.0-4.0); HEMOGLOBIN 10.3 g/dL (12.0-18.0); LYMPH # 1.2 K/uL (1.0-4.3); LYMPH % 9.3 % (20.0-40.0); MEAN CELL VOLUME 87.7 fL (80.0-94.0); MEAN CORPUSCULAR HEMOGLOBIN 29.3 pg (27.0-31.0); MEAN CORPUSCULAR HGB CONC 33.4 g/dL (33.0-37.0); MEAN PLATELET VOLUME 6.2 fL (7.2-11.7); MONO # 1.3 K/uL (0.0-0.8); MONO % 10.6 % (0.0-10.0); NEUT # 9.8 K/uL (1.8-7.0); NEUT % 76.9 % (50.0-75.0); PLATELET COUNT 381 K/uL (130-400); RBC 3.52 Mil/uL (4.40-5.90); RED CELL DISTRIBUTION WIDTH 14.2 % (11.5-14.5); WHITE BLOOD COUNT 12.7 K/uL (4.8-10.8)
[2018-01-08 07:39] LABS: ALB/GLOB RATIO 0.8 (1.0-2.1); ALBUMIN 2.6 g/dL (3.5-5.0); ALT/SGPT 28 U/L (21-72); AST/SGOT 29 U/L (17-59); BLOOD UREA NITROGEN 9 mg/dL (9-20); CALCIUM 7.9 mg/dl (8.6-10.4); GFR AFRICAN-AMERICAN > 60; GFR NON-AFRICAN AMERICAN > 60
[2018-01-08] MEDS: Saccharomyces Boulardi 250 mg Cap PO SCH ×2 (09:51→17:22)
[2018-01-08] MEDS: Ammonium Lactate 12% Lotion (225 g) EXT SCH ×2 (09:53→17:22)
[2018-01-08 09:55] LABS: BANDS 5 % (0-2); EOSINOPHIL 3 % (0-4); LYMPHOCYTE 7 % (20-40); MONOCYTE 6 % (0-10); MYELOCYTE 1 % (0-0); NEUTROPHIL 78 % (50-75); PLATELET ESTIMATE NORMAL (NORMAL); TOTAL CELLS COUNTED 100
[2018-01-08 09:56] LABS: HYPOCHROMIC SLIGHT
--- NOTE | 2018-01-08 11:57 | RAD ---
Date of service: 01/08/2018 HISTORY: verify right PICC COMPARISON: 01/03/2018. FINDINGS: The right PICC line terminates at the cavoatrial junction LUNGS: The lungs are well inflated. No focal consolidation. PLEURA: There is blunting of the left costophrenic angle. No significant pleural effusion identified, no pneumothorax apparent. CARDIOVASCULAR: Normal. OSSEOUS STRUCTURES: No significant abnormalities. VISUALIZED UPPER ABDOMEN: Normal. OTHER FINDINGS: None. IMPRESSION: Right PICC line terminates at the cavoatrial junction. No pneumothorax. Blunting of the left costophrenic angle may represent small left pleural effusion.
[2018-01-08] MEDS ORDERED: Bupivacaine 0.25% 20 ML INJ IJ ONE (13:08)
[2018-01-08] MEDS ORDERED: Lidocaine 2% MPF (5 ml) Inj ONE (13:08)
--- NOTE | 2018-01-08 13:18 | CP.PCM.PN ---
Subjective - Date & Time of Evaluation Date of Evaluation: 01/08/18 Time of Evaluation: 08:00 - Subjective Subjective: discussed on rounds for OR debridement deep tissue cultures to be sent Objective - Vital Signs/Intake and Output Vital Signs (last 24 hours): Temp Pulse Resp BP Pulse Ox 98 F 70 20 124/76 97 01/08/18 07:51 01/08/18 07:51 01/08/18 07:51 01/08/18 07:51 01/08/18 07:51 Intake and Output: 01/08/18 01/08/18 06:59 18:59 Intake Total 1100 Output Total 1850 Balance -750 - Medications Medications: Current Medications Acetaminophen (Tylenol 325mg Tab) 650 mg PO Q6 PRN PRN Reason: Pain, Mild (1-3) Heparin Sodium (Porcine) (Heparin) 5,000 units SC Q8 [facility] Last Admin: 01/07/18 21:05 Dose: 5,000 units Piperacillin Sod/Tazobactam (Sod 3.375 gm/ Sodium Chloride) 100 mls @ 200 mls/ hr IVPB Q8H [facility] PRN Reason: Protocol Last Admin: 01/08/18 12:01 Dose: 200 mls/hr Vancomycin/Sodium Chloride (Vancomycin 1 Gm/Ns 200 Ml) 1 gm in 200 mls @ 133.333 mls/hr IVPB Q8 [facility] PRN Reason: Protocol Stop: 01/11/18 22:01 Last Admin: 01/08/18 06:03 Dose: 133.333 mls/hr Lactic Acid (Lac-Hydrin 12% Lotion (225 G)) 0 gm EXT BID [facility] Last Admin: 01/08/18 09:53 Dose: 1 applic Saccharomyces Boulardii (Florastor) 250 mg PO BID [facility] Last Admin: 01/08/18 09:51 Dose: 250 mg - Labs Labs: 01/08/18 07:09 01/08/18 07:09 - Constitutional Appears: Non-toxic - Head Exam Head Exam: NORMOCEPHALIC - Eye Exam Eye Exam: PERRL - ENT Exam ENT Exam: Mucous Membranes Dry - Neck Exam Neck Exam: absent: Lymphadenopathy - Respiratory Exam Respiratory Exam: Decreased Breath Sounds - Cardiovascular Exam Cardiovascular Exam: REGULAR RHYTHM - GI/Abdominal Exam GI & Abdominal Exam: Distended - Rectal Exam Rectal Exam: Deferred - Exam Exam: NORMAL INSPECTION Assessment and Plan (1) Cellulitis, leg Status: Acute (2) Gangrene of extremity Status: Acute
[2018-01-08] MEDS ORDERED: Midazolam 2 MG/2 ML VIAL ONE (13:20)
[2018-01-08] MEDS ORDERED: Propofol 10 mg/ml Inj (20 ML) ONE ×2 (13:20→14:12)
[2018-01-08] MEDS ORDERED: HYDROmorphone 0.5 mg/0.5 ml ISec IVP PRN (14:35)
--- NOTE | 2018-01-08 14:36 | CP.PCM.PN ---
Subjective - Date & Time of Evaluation Date of Evaluation: 01/08/18 Time of Evaluation: 14:32 - Subjective Subjective: 62 y/o male to OR today for left foot wound debridement with Dr. Nguyen secondary to gas gangrene. Pt is 4 days s/p transmetatarsal amputation secondary to gas gangrene Plan: -Pt for [facility] today [facility] [place] Wound care instructions as follows: Upon arrival to rehab facility, please remove post-operative dressing and clean wound with sterile saline Please apply wound vac to left foot post-surgical wound to include all exposed wound areas - black foam with wound vac running on continuous negative pressure at 125 mm Hg Please apply dry sterile dressing over wound vac Please ensure that ewa-wound area does not macerate - please use Mastizole or Cavilon skin barrier protection Pt should follow up with Dr. Nguyen in the [facility] on a weekly basis on Fridays from 8am-12pm Objective - Vital Signs/Intake and Output Vital Signs (last 24 hours): Temp Pulse Resp BP Pulse Ox 98 F 70 20 124/76 97 01/08/18 07:51 01/08/18 07:51 01/08/18 07:51 01/08/18 07:51 01/08/18 07:51 Intake and Output: 01/08/18 01/08/18 06:59 18:59 Intake Total 1100 Output Total 1850 1200 Balance -750 -1200 - Medications Medications: Current Medications Acetaminophen (Tylenol 325mg Tab) 650 mg PO Q6 PRN PRN Reason: Pain, Mild (1-3) Heparin Sodium (Porcine) (Heparin) 5,000 units SC Q8 [facility] Last Admin: 01/07/18 21:05 Dose: 5,000 units Piperacillin Sod/Tazobactam (Sod 3.375 gm/ Sodium Chloride) 100 mls @ 200 mls/ hr IVPB Q8H [facility] PRN Reason: Protocol Last Admin: 01/08/18 12:01 Dose: 200 mls/hr Vancomycin/Sodium Chloride (Vancomycin 1 Gm/Ns 200 Ml) 1 gm in 200 mls @ 133.333 mls/hr IVPB Q8 [facility] PRN Reason: Protocol Stop: 01/11/18 22:01 Last Admin: 01/08/18 06:03 Dose: 133.333 mls/hr Lactic Acid (Lac-Hydrin 12% Lotion (225 G)) 0 gm EXT BID [facility] Last Admin: 01/08/18 09:53 Dose: 1 applic Saccharomyces Boulardii (Florastor) 250 mg PO BID [facility] Last Admin: 01/08/18 09:51 Dose: 250 mg - Labs Labs: 01/08/18 07:09 01/08/18 07:09
--- NOTE | 2018-01-08 14:38 | PCM.SURG1 ---
Surgeon's Initial Post Op Note - Surgeon's Notes Surgeon: Dr. Wood Acid Maker: Elisabeth Bacon, PGY1 Luana Whitfield PGY2 Type of Anesthesia: General IV, Local Anesthesia Administered By: Dr. Cates Pre-Operative Diagnosis: left transmetatarsal amputation wound Operative Findings: see dictation Post-Operative Diagnosis: same Operation Performed: Left foot debridement of wound Specimen/Specimens Removed: nonviable tissue from the left foot wound and medial midfoot plantar skin Estimated Blood Loss: EBL {In ML}: 50 Post-Op Condition: Good Date of Surgery/Procedure: 01/08/18 Time of Surgery/Procedure: 14:36
[2018-01-08] MEDS ORDERED: Oxycodone/Acetaminophen 5/325 mg Tab PO PRN ×2 (14:39)
[2018-01-08 16:12] VITALS: O2SAT 95
[2018-01-08 16:28] VITALS: BP 125/74; PULSE 70; RESP 20; TEMP 98
--- NOTE | 2018-01-08 17:46 | CP.PCM.DIS ---
Provider - Provider Date of Admission: 01/03/18 15:54 Attending physician: Fran Ruiz MD Primary care physician: NO FAMILY PROVIDER Consults: podiatry, ID Time Spent in preparation of Discharge (in minutes): 45 Diagnosis - Discharge Diagnosis (1) Cellulitis, leg Status: Acute Priority: High (2) Gangrene of extremity Status: Acute Priority: High (3) Leukocytosis Status: Acute Priority: Medium (4) COPD (chronic obstructive pulmonary disease) Status: Chronic Priority: Low (5) Hypoalbuminemia Status: Acute Priority: Low Hospital Course - Lab Results Lab Results: Most Recent Lab Values WBC 12.7 K/uL (4.8-10.8) H 01/08/18 07:09 RBC 3.52 Mil/uL (4.40-5.90) L 01/08/18 07:09 Hgb 10.3 g/dL (12.0-18.0) L 01/08/18 07:09 Hct 30.8 % (35.0-51.0) L 01/08/18 07:09 MCV 87.7 fL (80.0-94.0) 01/08/18 07:09 MCH 29.3 pg (27.0-31.0) 01/08/18 07:09 MCHC 33.4 g/dL (33.0-37.0) 01/08/18 07:09 RDW 14.2 % (11.5-14.5) 01/08/18 07:09 Plt Count 381 K/uL (130-400) 01/08/18 07:09 MPV 6.2 fL (7.2-11.7) L 01/08/18 07:09 Neut % (Auto) 76.9 % (50.0-75.0) H 01/08/18 07:09 Lymph % (Auto) 9.3 % (20.0-40.0) L 01/08/18 07:09 [place] % (Auto) 10.6 % (0.0-10.0) H 01/08/18 07:09 Eos % (Auto) 2.9 % (0.0-4.0) 01/08/18 07:09 Baso % (Auto) 0.3 % (0.0-2.0) 01/08/18 07:09 Neut # (Auto) 9.8 K/uL (1.8-7.0) H 01/08/18 07:09 Lymph # (Auto) 1.2 K/uL (1.0-4.3) 01/08/18 07:09 [place] # (Auto) 1.3 K/uL (0.0-0.8) H 01/08/18 07:09 Eos # (Auto) 0.4 K/uL (0.0-0.7) 01/08/18 07:09 Baso # (Auto) 0.0 K/uL (0.0-0.2) 01/08/18 07:09 Neutrophils % (Manual) 78 % (50-75) H 01/08/18 07:09 Band Neutrophils % 5 % (0-2) H 01/08/18 07:09 Lymphocytes % (Manual) 7 % (20-40) L 01/08/18 07:09 Reactive Lymphs % 1 % (0-0) H 01/07/18 06:52 Monocytes % (Manual) 6 % (0-10) 01/08/18 07:09 Eosinophils % (Manual) 3 % (0-4) 01/08/18 07:09 Basophils % (Manual) 1 % (0-2) 01/05/18 07:08 Myelocytes % 1 % (0-0) H 01/08/18 07:09 Toxic Granulation Present 01/05/18 07:08 Platelet Estimate Normal (NORMAL) 01/08/18 07:09 Hypochromasia (manual) Slight 01/08/18 07:09 Poikilocytosis (manual Slight 01/05/18 07:08 Anisocytosis (manual) Slight 01/05/18 07:08 Sodium 137 mmol/L (132-148) 01/08/18 07:09 Potassium 3.8 mmol/L (3.6-5.2) 01/08/18 07:09 Chloride 96 mmol/L (98-107) L 01/08/18 07:09 Carbon Dioxide 36 mmol/L (22-30) H 01/08/18 07:09 Anion Gap 9 (10-20) L 01/08/18 07:09 BUN 9 mg/dL (9-20) 01/08/18 07:09 Creatinine 0.6 mg/dL (0.8-1.5) L 01/08/18 07:09 Est GFR ( Amer) > 60 01/08/18 07:09 Est GFR (Non-Af Amer) > 60 01/08/18 07:09 POC Glucose (mg/dL) 98 mg/dL (65-110) 01/08/18 16:07 Random Glucose 107 mg/dL (75-110) 01/08/18 07:09 Hemoglobin A1c 6.0 % (4.2-6.5) 01/06/18 13:57 Calcium 7.9 mg/dl (8.6-10.4) L 01/08/18 07:09 Phosphorus 3.4 mg/dL (2.5-4.5) 01/08/18 07:09 Magnesium 2.1 mg/dL (1.6-2.3) 01/08/18 07:09 Total Bilirubin 0.2 mg/dL (0.2-1.3) 01/08/18 07:09 AST 29 U/L (17-59) 01/08/18 07:09 ALT 28 U/L (21-72) 01/08/18 07:09 Alkaline Phosphatase 63 U/L (38-126) 01/08/18 07:09 Total Protein 5.8 g/dL (6.3-8.3) L 01/08/18 07:09 Albumin 2.6 g/dL (3.5-5.0) L 01/08/18 07:09 Globulin 3.2 gm/dL (2.2-3.9) 01/08/18 07:09 Albumin/Globulin Ratio 0.8 (1.0-2.1) L 01/08/18 07:09 Vancomycin Trough 13.6 ug/mL (5.0-10.0) H 01/07/18 12:59 Urine Opiates Screen Negative (NEGATIVE) 01/03/18 21:14 Urine Methadone Screen Negative (NEGATIVE) 01/03/18 21:14 Ur Barbiturates Screen Negative (NEGATIVE) 01/03/18 21:14 Ur Phencyclidine Scrn Negative (NEGATIVE) 01/03/18 21:14 Ur Amphetamines Screen Negative (NEGATIVE) 01/03/18 21:14 U Benzodiazepines Scrn Negative (NEGATIVE) 01/03/18 21:14 U Oth Cocaine Metabols Negative (NEGATIVE) 01/03/18 21:14 U Cannabinoids Screen Negative (NEGATIVE) 01/03/18 21:14 Blood Type A NEGATIVE 01/03/18 21:14 Antibody Screen Negative 01/03/18 21:14 - Hospital Course Hospital Course: 62 year old male with PMHx of COPD and inguinal hernia presents with a 10 day history of intermittent left foot pain, swelling, and redness that started getting worst 3 days after he missed the last step going down stairs landing forcefully on foot. He states that he did not think much of until Thursday night when his pain got worse, 02/15 and is now tender to touch, and swollen. He describes the pain as stabbing in nature with no radiation to other parts of the body. The pain is worse when he bears his weight on it while walking and better with elevation of the extremity. Patient lives in a homeless alf in [place] and was initially seen in [facility] but was transferred to [facility] [place] due to a problem with the ORs and his need for possible amputation. Patient admits to productive cough that started one month ago, with clear phlegm. He admits to sick contacts at the homeless alf. Patient denies fevers, chills, chest pain, shortness of breath, nausea, vomiting , abdominal pain, diarrhea, and constipation. The patient was started on IV Zosyn and Vancomycin. Podiatry was consulted and determined patient needed a TMA to his left foot. This was done on 01/05. He went back to the OR for debridement on 01/08. During the admission, the pt complained of minimal pain. He had good sleep and appetite. His WBC progressively trended down. Would culture did not grow any organisms. Patient was non-weight bearing as per podiatry. He worked with PT with walker and crutches. Patient was also found to have low albumin. He drank 2 Ensures/day. Upon discharge, the patient was stable post-op. He had a wound vac in place. He had a PICC line in place. He was transferred to rehab at [facility] in [place]. He will continue to receive IV abx for a total of 6 weeks as per ID. He will receive PT services at rehab. Discharge Exam - Head Exam Head Exam: ATRAUMATIC, NORMAL INSPECTION, NORMOCEPHALIC - Eye Exam Eye Exam: EOMI, Normal appearance Pupil Exam: Unequal (left eye dilated) - ENT Exam ENT Exam: Mucous Membranes Moist - Neck Exam Neck exam: Full Rom, Normal Inspection - Respiratory Exam Respiratory Exam: Clear to PA & Lateral, NORMAL BREATHING PATTERN - Cardiovascular Exam Cardiovascular Exam: REGULAR RHYTHM - GI/Abdominal Exam GI & Abdominal Exam: Normal Bowel Sounds, Soft - Rectal Exam Rectal Exam: Deferred - Extremities Exam Additional comments: Left foot wrapped, mild dry skin and erythema of ankle - Back Exam Back exam: NORMAL INSPECTION - Neurological Exam Neurological exam: Alert, Oriented x3 - Psychiatric Exam Psychiatric exam: Normal Affect, Normal Mood - Skin Skin Exam: Dry (excessively on LEs), Intact, Normal Color, Warm Discharge Plan - Follow Up Plan Condition: FAIR Disposition: REHAB FACILITY/REHAB UNIT Instructions: Cellulitis (DC) Additional Instructions: Patient is stable for discharge to rehab as per Dr. Ruiz. Patient is being transferred to [facility] rehab in [place]. He will continue on IV antibiotics for a total of 6 weeks. This was explained to the patient who understands and agrees. Referrals: FAMILY PROVIDER,NO [Primary Care Provider] -
== END 2018-01-08 20:17 | DRG 898 ==
LOC: C.3T 15:54
PROVIDERS: ADMIT Internal Medicine; ATTEND Internal Medicine
PROC: 0Y6N0ZB Detachment at Left Foot, Partial 2nd Ray, Open Approach (ICD-10-PCS; 2018-01-04)
PROC: 0Y6N0ZC Detachment at Left Foot, Partial 3rd Ray, Open Approach (ICD-10-PCS; 2018-01-04)
PROC: 0Y6N0ZD Detachment at Left Foot, Partial 4th Ray, Open Approach (ICD-10-PCS; 2018-01-04)
PROC: 0Y6N0ZF Detachment at Left Foot, Partial 5th Ray, Open Approach (ICD-10-PCS; 2018-01-04)
PROC: 0Y6N0Z9 Detachment at Left Foot, Partial 1st Ray, Open Approach (ICD-10-PCS; principal; 2018-01-04 09:00)
DX: A48.0 Gas gangrene (principal); J44.9 Chronic obstructive pulmonary disease, unspecified; L03.116 Cellulitis of left lower limb; F12.90 Cannabis use, unspecified, uncomplicated; F17.200 Nicotine dependence, unspecified, uncomplicated; K40.90 Unilateral inguinal hernia, without obstruction or gangrene, not specified as recurrent; Z59.0 Homelessness; E88.09 Other disorders of plasma-protein metabolism, not elsewhere classified